=== PATIENT | female | born 1950 | race Caucasian/White ===

== ENCOUNTER → 2017-01-06 | Outpatient (CLI) | payer BC, OTHER ==
[~2017-01-06] MED LIST: CMD5 PO; DIPH1TAB87 PO; FRCT/ PO; KETO10TA PO; METH4PAK PO; MONT1TAB3 PO; PARO30TA PO; PRLSR20 PO; SIMV40TA2 PO; VNTHFA/IN INH
[2017-01-06 09:42] LABS: ALT/SGPT 17 U/L (12-78); AST/SGOT 16 U/L (15-37); BLOOD UREA NITROGEN 20 mg/dl (7-18); CALCIUM 8.5 mg/dl (8.5-10.1); CARBON DIOXIDE 31 mmol/L (21-32); CHLORIDE 108 mmol/L (98-107); CHOLESTEROL 194 mg/dl (0-200); CREATININE 0.91 mg/dl (0.60-1.20); GLUCOSE 92 mg/dl (70-99); POTASSIUM 4.3 mmol/L (3.5-5.1); SODIUM 145 mmol/L (136-145)
[2017-01-06 09:45] LABS: ALB/GLOB RATIO 0.7 (0.9-2); ALKALINE PHOSPHATASE 71 U/L (45-117); CHOLESTEROL/HDL RATIO 4.3; HDL CHOLESTEROL 45 mg/dl; TRIGLYCERIDES 226 mg/dl (0-150); VERY LOW DENSITY LIPOPROT CALC 45 mg/dl
== END | disposition home or self-care (01) ==
LOC: C.LAB 08:56
PROVIDERS: ATTEND Physician Assistant Medical
DX: J45.909 Unspecified asthma, uncomplicated (principal); F32.9 Major depressive disorder, single episode, unspecified; G89.29 Other chronic pain; E55.9 Vitamin D deficiency, unspecified; Z86.718 Personal history of other venous thrombosis and embolism

== ENCOUNTER 2017-01-13 05:22 | Inpatient (IN) | payer OTHER, BC ==
[2017-01-06 08:09] VITALS: BMI 40.0
--- NOTE | 2017-01-06 08:41 | PAT Medication Instructions ---
Service Date Jan 06, 2017. Current Home Medication List Albuterol Hfa (Ventolin Hfa), 2-4 PUFFS INH Q6H PRN for Shortness of Breath Montelukast Sodium (Singulair), 10 MG PO QAM Omeprazole (Prilosec), 20 MG PO QAM Paroxetine Hcl (Paxil), 30 MG PO QAM Simvastatin (Zocor), 40 MG PO QAM Warfarin Sod (Coumadin), 8 MG PO UD Medication Instructions For Your Scheduled Surgery - Check with surgeon and head irrigator for instruction: Warfarin Sod (Coumadin), 8 MG PO UD - Hold the following medications the morning of surgery: Montelukast Sodium (Singulair), 10 MG PO QAM - Take the following medications the morning of surgery with a sip of water: Albuterol Hfa (Ventolin Hfa), 2-4 PUFFS INH Q6H PRN for Shortness of Breath (if needed) Omeprazole (Prilosec), 20 MG PO QAM Paroxetine Hcl (Paxil), 30 MG PO QAM Simvastatin (Zocor), 40 MG PO QAM If you have any questions please call us at [phone] or [phone] or [phone]
--- NOTE | 2017-01-06 09:36 | DIAGNOSTIC IMAGING REPORT ---
CHEST PREADMISSION(PA/LAT) CLINICAL HISTORY: Preoperative chest COMPARISON STUDY: No previous studies for comparison. FINDINGS: The heart is enlarged. There is no focal pulmonary consolidation. There is no failure. There are no pleural effusions. Degenerative changes are present within the dorsal spine. As a mild scoliosis.[ IMPRESSION: No active disease in the chest. Electronically signed by: Tommy Snyder M.D. 01/06/2017 9:35 AM Dictated Date/Time: 01/06/2017 9:34 AM
[2017-01-06 09:44] LABS: BASO % 0.7 %; BASO ABS # 0.05 K/uL (0-0.2); COMPLETE YES; EOS % 1.8 %; HEMATOCRIT 38.3 % (37-47); IG% 0.1 %; LYMPH % 35.2 %; LYMPH ABS # 2.67 K/uL (1.2-3.4); MEAN CELL VOLUME 81.3 fL (80-100); MEAN CORPUSCULAR HEMOGLOBIN 25.5 pg (25-34); MEAN CORPUSCULAR HGB CONC 31.3 g/dl (32-36); MEAN PLATELET VOLUME 10.2 fL (7.4-10.4); MONO % 6.6 %; NEUT % 55.6 %; PLATELET COUNT 259 K/uL (130-400); RED BLOOD COUNT 4.71 M/uL (4.2-5.4); WHITE BLOOD COUNT 7.58 K/uL (4.8-10.8)
[2017-01-06 09:46] LABS: INR 2.3 (0.9-1.1); PARTIAL THROMBOPLASTIN RATIO 1.5
--- NOTE | 2017-01-12 20:57 | HISTORY & PHYSICAL EXAMINATION ---
DATE OF ADMISSION: 01/13/2017 CHIEF COMPLAINT: Back and lower extremity difficulty, paresthesias, numbness, tingling and pain. HISTORY OF PRESENT ILLNESS: Radhika is a delightful young lady. She has had ongoing back and lower extremity difficulty for several years. She has had surgery in the past, helped her to a degree. She had increasing symptomatology. She saw me for a second opinion. She wants my expertise for surgical intervention and we have scheduled her for surgery, she has cauda equina compression at L2-L3 and she has nerve root compression at L5-S1. PAST MEDICAL HISTORY: Includes asthma, blood clot in the past in 2011, angina, acid reflux, osteoarthritis. Notes no carcinoma history. No difficulty with anesthesia. No liver ____ kidney issues. PAST SURGICAL HISTORY: Lumbar spine surgery in 2013, hysterectomy, tonsil and adenoids as well, hernia repair, appendectomy. ALLERGIES: PENICILLIN, AMPICILLIN, CEFTIN, AND SULFA. MEDICATIONS: Prilosec, Paxil, Zocor, vitamin D and warfarin. SOCIAL HISTORY: Nonsmoker, non-ETOH user. REVIEW OF SYSTEMS: She denies any blurred vision, double vision, tinnitus, vertigo. Denies any current chest pain, palpitations. Denies asthma, wheezing, shortness of breath. Her major complaint is her back and lower extremity difficulty, numbness and tingling, loss of range of motion. OBJECTIVE: GENERAL: She is 5 feet 10 inches, 200 pounds. She is alert, oriented. Mentation normal. She does not appear depressed. VITAL SIGNS: 130/80 blood pressure, 80 pulse, afebrile. CARDIAC: Normal S1, S2, no S3. Good pulses. No ectopy. RESPIRATORY: Equal breath sounds bilaterally. No wheezing, no shortness of breath. ABDOMEN: Soft, nontender, bowel sounds present. MUSCULOSKELETAL: Demonstrates pain with straight leg raising bilaterally. She does use a walker for support. She has pain with palpation of lumbar spine. She has pain and decreased range of motion. IMAGING DATA: Images reviewed demonstrating a good interbody fusion at L5-S1 migration posteriorly on the left ____ neural foramen also appears to be degenerative issue at L2-L3 with a herniated disk as well. ASSESSMENT: Nerve root irritation, degenerative disk disease, L2-L3 lumbar spine; nerve root compression, L5-S1 lumbar spine. PLAN: Includes surgery would be revision of the L3-S1, removal of old rods and screws, replaced with rods and screws and fusion L2-L3, modification of the interbody fusion L5-S1 and decompression L3-S1.
[2017-01-13] VITALS (8 sets, daily range): BP systolic 114–140; BP diastolic 71–84; PULSE 73–90; TEMP 35.8–37; O2SAT 87–100; Ht 152.4 cm; Wt 93.4 kg
[~2017-01-13] VITALS: Ht 152.4 cm; Wt 93.4 kg
[~2017-01-13 05:22] MED LIST changes: -DIPH1TAB87 PO; -FRCT/ PO; -KETO10TA PO; -METH4PAK PO
[2017-01-13] MEDS ORDERED: DIPH1TAB PO (05:45)
[2017-01-13] MEDS ORDERED: LACTATED RINGER'S 1000ML 1,000 ML IV SCH (06:00)
[2017-01-13] MEDS ORDERED: CLINDAMYCIN 600 MG/54 ML D5W IV SCH (06:00)
[2017-01-13] MEDS ORDERED: SODIUM CHLORIDE 0.9% 1000ML 1,000 ML IV SCH ×2 (06:00→11:20)
[2017-01-13 06:23] LABS: PARTIAL THROMBOPLASTIN RATIO 1.1; PROTHROMBIN TIME (PATIENT) 10.8 SECONDS (9.0-12.0)
[2017-01-13] MEDS ORDERED: HYDROmorphone INJ 2 MG/ML SYR/VIAL ONE (06:39)
[2017-01-13] MEDS ORDERED: MIDAZOLAM HCL 1 MG/ML 2ML VIAL ONE (06:39)
[2017-01-13] MEDS ORDERED: FENTANYL CITRATE INJ 50 MCG/1 ML 2 ML VIAL ONE ×2 (06:39→10:08)
[2017-01-13] MEDS ORDERED: PHENYLEPHRINE 100MCG/ML 5ML SYR IV PRN (07:00)
[2017-01-13] MEDS ORDERED: PROMETHAZINE HCL INJ 12.5 MG in SODIUM CHLORIDE 0.9% 50ML 50 ML IV PRN ×2 (07:00→11:30)
[2017-01-13] MEDS ORDERED: ATROPINE SULFATE 0.1 MG/ML 5ML SYR IV PRN (07:00)
[2017-01-13] MEDS ORDERED: FENTANYL CITRATE INJ 50 MCG/1 ML 2 ML VIAL IV PRN (07:00)
[2017-01-13] MEDS ORDERED: LABETALOL HCL IV 5 MG/ML 20ML IV PRN (07:00)
[2017-01-13] MEDS ORDERED: ONDANSETRON INJ 2 MG/ML 2 ML VIAL IV PRN (07:00)
[2017-01-13] MEDS ORDERED: HYDROmorphone INJ 1 MG/ML SYR IV PRN (07:00)
[2017-01-13] MEDS ORDERED: EpHEDrine SULFATE INJ 50 MG/ML AMP IV PRN (07:00)
[2017-01-13] MEDS ORDERED: GELATIN SPONGE SZ 100 ONE (07:07)
[2017-01-13] MEDS ORDERED: THROMBIN FOR SOLN 20000 UNIT KIT ONE (07:07)
[2017-01-13] MEDS ORDERED: BACITRACIN 50000 UNIT VIAL ONE ×2 (07:08→09:43)
[2017-01-13] MEDS ORDERED: BUPIVACAINE/EPINEPHRINE 0.5% MPF 1:200,000 30 ML VIAL ONE (07:08)
--- NOTE | 2017-01-13 07:14 | History & Physical Bridge Note ---
H&P Re-Evaluation Bridge Note: I have examined the patient, reviewed the History & Physical and in the interval since the performance of the History & Physical I have noted the following changes of clinical significance: No changes noted
[2017-01-13] MEDS ORDERED: ROCURONIUM BROMIDE 10 MG/ML 5 ML VIAL IV ONE (09:29)
[2017-01-13] MEDS ORDERED: GLYCOPYRROLATE INJ 0.2 MG/ML VIAL ONE (09:29)
[2017-01-13] MEDS ORDERED: ONDANSETRON INJ 2 MG/ML 2 ML VIAL ONE (09:29)
[2017-01-13] MEDS ORDERED: PROPOFOL IV EMULSION 10 MG/ML 20 ML VIAL IV ONE (09:29)
[2017-01-13] MEDS ORDERED: NEOSTIGMINE METHYLSULFATE 5 MG/5 ML SYR ONE (09:29)
[2017-01-13] MEDS: POLYMYXIN B SULFATE 100,000 UNITS in NSS 100ML IR SCH ×2 (10:30→11:09)
[2017-01-13] MEDS ORDERED: DURASEAL DURAL SEALANT 5ML TOP ONE (10:47)
--- NOTE | 2017-01-13 10:50 | DIAGNOSTIC IMAGING REPORT ---
INTRAOPERATIVE LUMBAR SPINE LATERAL VIEWS ONLY (2 VIEWS) CLINICAL HISTORY: L2-L3 FUSION COMPARISON STUDY: Conventional radiographic study dated 12/27/2016 FINDINGS: 8 seconds of fluoroscopic time was utilized. 2 intraoperative fluoroscopic spot images are provided for interpretation. There are postsurgical changes of discectomies and interbody fusions at the L3-4, L4-5, and L5-S1 levels, similar to the preoperative study. The L4 pedicle screws have been removed. L2 pedicle screws have been placed. IMPRESSION: Intraoperative findings as described above. Electronically signed by: Tommy Snyder M.D. 01/13/2017 10:48 AM Dictated Date/Time: 01/13/2017 10:46 AM
--- NOTE | 2017-01-13 11:21 | [facility] Post Operative Brief Note ---
Immediate Operative Summary Operative Date Jan 13, 2017. Pre-Operative Diagnosis Nerve root irritation, degenerative disk disease, L2-L3 lumbar spine; nerve root compression, L5-S1 lumbar spine Post-Operative Diagnosis Nerve root irritation, degenerative disk disease, L2-L3 lumbar spine; nerve root compression, L5-S1 lumbar spine Procedure(s) Performed L2-S1 Decompression, Removal Hardware L3-S1, Fusion L2-L3, Revision of construct L5-S1, Repair of dural tear Surgeon Dr. Mcdonald Water Project Manager Surgeon(s) JONNA Christianson Estimated Blood Loss 400ml Findings stenosis and instabil;ity Specimens A) removed hardware Complication(s) None Disposition Recovery Room / PACU
[2017-01-13] MEDS ORDERED: LORAZEPAM 1 MG TAB PO PRN (11:30)
[2017-01-13] MEDS ORDERED: MAGNESIUM HYDROXIDE SUSP 30 ML UDC PO PRN (11:30)
[2017-01-13] MEDS ORDERED: NALOXONE HCL 0.4 MG/1 ML VIAL/CARP IV PRN (11:30)
[2017-01-13] MEDS ORDERED: LORAZEPAM INJ 1 MG in SYRINGE 0 ML IV PRN (11:30)
[2017-01-13] MEDS ORDERED: ACETAMINOPHEN 325 MG TAB PO PRN (11:30)
[2017-01-13] MEDS ORDERED: METOCLOPRAMIDE HCL INJ 5 MG/ML 2 ML VIAL IV PRN (11:30)
[2017-01-13] MEDS ORDERED: [UNRECOGNIZED DRUG - REMARK] PO PRN (11:30)
[2017-01-13] MEDS ORDERED: HYDROmorphone HCL 0.5MG/ML 50 ML CASSETTE ONE (11:45)
--- NOTE | 2017-01-13 11:58 | OPERATIVE REPORT ---
DATE OF OPERATION: 01/13/2017 PREOPERATIVE DIAGNOSES: 1. Spinal stenosis, lumbar spine. 2. Painful implants, lumbar spine. 3. Instability and stenosis L2-L3, lumbar spine. POSTOPERATIVE DIAGNOSIS: Same. PROCEDURE: Included: 1. Decompression L2-S1 bilaterally, L2, L3, L4, L5 and S1 nerve roots bilaterally. 2. Removal of old implants, L3, L4, L5 and S1. 3. Instrumentation and fusion L2-L3, lumbar spine. 4. Removal and revision of old implant at L5-S1, which is an old cage implant from the [id number]. SURGEON: Dr. Mcdonald. SEISMOGRAPH CHIEF: Krishna Callahan PA-C. COMPLICATIONS: No apparent complications. BLOOD LOSS: 400 mL. COUNTS: Sponge and needle count correct at the close. No complications. DESCRIPTION OF PROCEDURE: The patient was taken to the operating room suite, a general intubated anesthetic provided to the patient, a Santana catheter administered and antibiotics administered. She was placed prone, scrubbed, prepped and draped in a sterile fashion. We used most of her old incisions and made a new incision, basically from L2 down to S1 dissecting the soft tissue in the same plane out over the transverse processes and out over the old implants. We meticulously removed the old spinal implants, first the crosslinks then the pedicle screws and the rods themselves. We then went to focus at the L2-L3 interval lumbar spine, decompressed that in their entirety from L2 down to L3. We also decompressed the neural elements L4, L5, S1 bilaterally. I was pleased with the amount of freedom. We then instrumented the spine secondary to instability factor at L2-L3, safely getting pedicle screws in to L3 and L2 of the lumbar elements, stabilized and decompressed an unstable segment. We then went down to the L5-S1 region. We localized the intervertebral implant. We retracted the dura in a medial direction, we could see both the S1 and L5 nerve roots. Appeared to me that the PEEK implant was eroding into the nerve root particularly S1 into the dura itself. We carefully removed this off the implant. We held a hand-held retractor. I was able to retract off the proximal portion of the implant estimating about 4-5 mm. This gave freedom to the S1 and L5 nerve roots bilaterally. With a probe and visualization, they were then free of obstruction. We irrigated thoroughly. I did a prophylactically closed the dura down at L5-S1, it was right up against the nerve root. We then used a material called DuraSeal over the exposed dura to prevent any future leakage of spinal fluid. We then bone grafted out over the transverse processes of the L2-L3, closed fascia to fascia with #1 Vicryl suture water tight fashion, 2-0 on the subcuticular layer, 3-0 nylon and a staple gun used on the skin surface. Sterile dressings applied. The patient returned supine, extubated to PACU stable. No apparent complications. I attest to the content of the Intraoperative Record and any orders documented therein. Any exception s are noted below.
[2017-01-13 12:00] LABS: HEMATOCRIT 33.9 % (37-47)
--- NOTE | 2017-01-13 13:05 | Anesthesiology Progress Note ---
Anesthesia Post Op Note Date & Time Jan 13, 2017 at 13:05 Vital Signs Pain Intensity: 0 Vital Signs Past 12 Hours Date Time Temp Pulse Resp B/P (MAP) Pulse Ox O2 Delivery O2 Flow Rate FiO2 01/13/17 13:00 36.0 86 12 155/90 95 Nasal Cannula 4 01/13/17 12:33 81 20 01/13/17 12:33 81 20 97 01/13/17 12:31 132/91 01/13/17 12:28 96 20 01/13/17 12:28 96 20 96 01/13/17 12:26 126/104 01/13/17 12:23 83 10 118/75 98 01/13/17 12:23 83 10 01/13/17 12:21 106/72 01/13/17 12:18 80 12 01/13/17 12:18 80 12 96 01/13/17 12:16 108/60 01/13/17 12:13 80 12 97 01/13/17 12:13 80 12 01/13/17 12:11 118/65 01/13/17 12:08 87 16 95 01/13/17 12:08 88 16 01/13/17 12:06 110/62 01/13/17 12:03 84 12 01/13/17 12:03 84 12 96 01/13/17 12:01 116/63 01/13/17 11:58 89 15 01/13/17 11:58 89 15 122/66 96 01/13/17 11:56 122/66 01/13/17 11:53 91 13 97 01/13/17 11:53 91 13 01/13/17 11:51 139/71 01/13/17 11:48 97 18 99 01/13/17 11:48 97 18 01/13/17 11:46 157/77 01/13/17 11:43 107 16 99 01/13/17 11:43 107 16 01/13/17 11:41 153/91 01/13/17 11:38 103 10 99 01/13/17 11:38 103 10 01/13/17 11:36 161/80 01/13/17 11:35 108 12 161/80 99 Oxymask 10 01/13/17 11:34 169/93 01/13/17 11:33 106 12 01/13/17 11:33 36.0 106 12 124/109 99 Oxymask 10 01/13/17 11:33 106 12 124/109 93 01/13/17 05:47 36.5 73 20 129/72 97 Room Air Notes Mental Status: alert / awake / arousable, participated in evaluation Pt Amnestic to Procedure: Yes Nausea / Vomiting: adequately controlled Pain: adequately controlled Airway Patency, RR, SpO2: stable & adequate BP & HR: stable & adequate Hydration State: stable & adequate Anesthetic Complications: no major complications apparent
[2017-01-13] MEDS: HYDROmorphone HCL 0.5MG/ML 50 ML CASSETTE IV PRN ×3 (13:30→23:04)
--- NOTE | 2017-01-13 14:05 | Medical Consult ---
Consultation Date of Consultation: Jan 13, 2017. Attending Physician: Ruddy Mcdonald DO Reason for Consultation: Medical Management History of Present Illness This is a 66 yo F with PMHx of asthma, gerd, morbid obesity, HAYDEE on cpap, angina , osteoarthritis, hx of PE in 2013 and DVT approximately 1 year ago on chronic anticoagulation, who underwent spinal surgery by Dr. Mcdonald on 01/13/17 including decompression L2-S1 bilaterally, L2, L3, L4, L5 and S1 nerve roots bilaterally, removal of old implants, L3, L4, L5 and S1, Instrumentation and fusion L2-L3, lumbar spine, and removal and revision of old implant at L5-S1. During surgery Hardware appeared to be eroding into the dura itself, and therefor removal resulted in a dura tear. Duraseal was placed over the area to prevent further CSF leak. Her family including and two daughters are present during my evaluation. She is asleep but easily awakened. She admits to having a bad frontal headache. Nursing reports she did not complain of this headache in the PACU but has since being moved up to the floor. She is having back pain, but no numbness or tingling into her lower extremities. Family notes she was complaining of nausea earlier but no vomiting. Pt received zofran and phenergan in the PACU, likely adding to her lethargic nature. She has a cpap machine brought from home. Pts last BM was yesterday morning. Family reports she uses a walker outside of the home, but inside does not use anything. They report [facility] would likely be her choice for rehab after this hospitalization. Past Medical/Surgical History Cauda equina compression at L2-L3 and she has nerve root compression at L5-S1. Asthma Hx of DVT in 2011 Angina GERD Osteoarthritis Surgical Hx: Lumbar spine surgery in 2013 Hysterectomy Tonsillectomy and adenoidectomy Hernia repair Appendectomy Social History Smoking Status: Never Smoker Smokeless Tobacco Use: No Alcohol Use: none Drug Use: none Marital Status: Housing Status: lives with family Allergies Coded Allergies: Enoxaparin (Verified Allergy, Intermediate, HIVES, 01/13/17) Cephalosporins (Verified Allergy, Mild, RASH HIVES, 01/13/17) Penicillins (Verified Allergy, Mild, RASH HIVES, 01/13/17) Vancomycin (Verified Allergy, Mild, RASH HIVES, RED STRAKING, EYES SWOLLEN , 01/13/17) Hydrochlorothiazide (Unverified Allergy, Unknown, UNKNOWN REACTION, ) PER PCP RECORDS Macrolides and Ketolides (Verified Allergy, Unknown, RASH/HIVES TO MACROLIDES, 01/13/17) Sulfa Antibiotics (Verified Allergy, Unknown, RASH/HIVES TO SULFA DRUGS, 01/13/17) Iodine (Verified Adverse Reaction, Mild, IODINE CONTRAST -- N/V, 01/13/17) Meperidine (Verified Adverse Reaction, Mild, N/V, 01/13/17) Sertraline (Unverified Adverse Reaction, Unknown, UNKNOWN REACTION, ) PER PCP RECORDS Current Inpatient Medications Current Inpatient Medications Medications (Trade) Dose Ordered Sig/Omar Route Start Time Stop Time Status Last Admin Dose Admin Clindamycin Phosphate 54 ml @ 100 mls/hr PREOP IV 01/13/17 06:00 01/13/17 18:00 01/13/17 07:31 100 MLS/HR Sodium Chloride 1,000 ml @ 15 mls/hr Q24H IV 01/13/17 06:00 01/14/17 05:59 Lactated Ringer's 1,000 ml @ 15 mls/hr Q24H IV 01/13/17 06:00 01/14/17 05:59 01/13/17 06:08 15 MLS/HR Polymyxin B Sulfate 958473 units/Sodium Chloride 102 ml @ 0 mls/hr TODAY@1030 IR 01/13/17 10:30 01/13/17 16:00 01/13/17 11:09 40 MLS/HR Diphenhydramine HCl (Benadryl Cap) 25 mg Q6H PRN PO 01/13/17 11:30 02/12/17 11:29 Magnesium Hydroxide (Milk Of Magnesia Susp) 30 ml DAILY PRN PO 01/13/17 11:30 02/12/17 11:29 Bisacodyl (Dulcolax Supp) 10 mg DAILY PRN AK 01/14/17 06:00 02/13/17 05:59 Bisacodyl (Dulcolax Tab) 5 mg DAILY PRN PO 01/14/17 06:00 02/13/17 05:59 Polyethylene (Miralax Powder Packet) 17 gm DAILY PO 01/14/17 09:00 11/16/17 08:59 UNV Lorazepam 1 mg/ Syringe 0.5 ml @ 1 mls/min Q6H PRN IV 01/13/17 11:30 02/12/17 11:29 UNV Lorazepam (Ativan Tab) 1 mg Q6H PRN PO 01/13/17 11:30 02/12/17 11:29 Metoclopramide HCl (Reglan Inj) 10 mg Q6H PRN IV 01/13/17 11:30 02/12/17 11:29 Ondansetron HCl (Zofran Inj) 4 mg Q6H PRN IV 01/13/17 11:30 02/12/17 11:29 Promethazine HCl 12.5 mg/Sodium Chloride 50.5 ml @ 202 mls/hr Q6H PRN IV 01/13/17 11:30 02/12/17 11:29 01/13/17 12:55 202 MLS/HR Hydromorphone HCl (Dilaudid Inj) 1.5 mg Q3H PRN IV 01/14/17 08:00 01/28/17 07:59 Oxycodone/ Acetaminophen (Percocet 5-325mg Tab) 2 tab Q4H PRN PO 01/14/17 08:00 01/28/17 07:59 Hydromorphone HCl (Dilaudid Inj) 1 mg Q3H PRN IV 01/14/17 08:00 01/28/17 07:59 Oxycodone/ Acetaminophen (Percocet 5-325mg Tab) 1 tab Q4H PRN PO 01/14/17 08:00 01/28/17 07:59 Miscellaneous Information (Discontinue BUSINESS MANAGER) 1 ea ONE ONCE N/A 01/14/17 08:00 01/14/17 08:01 Acetaminophen (Tylenol Tab) 650 mg Q6H PRN PO 01/13/17 11:30 02/12/17 11:29 Clindamycin Phosphate 600 mg/ Dextrose 54 ml @ 100 mls/hr Q8H IV 01/13/17 11:30 01/13/17 20:03 UNV Dexamethasone Sodium Phosphate 10 mg/Syringe 2.5 ml @ 1 mls/min Q8H IV 01/13/17 11:30 01/14/17 19:33 UNV Sodium Chloride 1,000 ml @ 80 mls/hr [id number] IV 01/13/17 11:20 02/12/17 11:19 Montelukast Sodium (Singulair Tab) 10 mg QAM PO 01/14/17 09:00 02/13/17 08:59 UNV Simvastatin (Zocor Tab) 40 mg QAM PO 01/14/17 09:00 02/13/17 08:59 UNV Warfarin Sodium (Coumadin Tab) 8 mg UD PO 01/13/17 11:30 02/12/17 11:29 UNV Non-Formulary Medication (Diphenhydramine Hcl (Benadryl Allergy)) 25 mg DIRECTED PRN PO 01/13/17 11:30 02/12/17 11:29 UNV Non-Formulary Medication (Omeprazole (Prilosec)) 20 mg QAM PO 01/14/17 09:00 02/13/17 08:59 UNV Non-Formulary Medication (Paroxetine Hcl (Paxil)) 30 mg QAM PO 01/14/17 09:00 02/13/17 08:59 UNV Naloxone HCl (Narcan Inj) 0.1 mg Q5M PRN IV 01/13/17 11:30 01/14/17 08:00 Hydromorphone HCl (Dilaudid Back Maker) 25 mg PRN PRN IV 01/13/17 11:30 01/14/17 08:00 01/13/17 13:30 25 MG Sodium Chloride 1,000 ml @ 15 mls/hr Q24H IV 01/13/17 11:20 01/14/17 08:00 Review of Systems Constitutional: + problem reported (severe frontal headache), No fever, No chills, No sweats Eyes: No problem reported ENT: + problem reported (dry mouth), No trouble swallowing Respiratory: No cough, No sputum, No shortness of breath Cardiovascular: No chest pain, No edema, No palpitations Abdomen: No pain, No nausea, No vomiting, No diarrhea, No constipation Musculoskeletal: No joint pain, No swelling Genitourinary - Female: No dysuria Neurologic: No weakness, No numbness/tingling Integumentary: No rash, No itch Physical Exam Date Time Temp Pulse Resp B/P (MAP) Pulse Ox O2 Delivery O2 Flow Rate FiO2 01/13/17 13:16 144/84 01/13/17 13:15 88 13 144/84 96 Nasal Cannula 4 01/13/17 13:14 88 13 96 01/13/17 13:14 88 13 01/13/17 13:11 141/91 01/13/17 13:09 87 13 01/13/17 13:09 87 13 96 01/13/17 13:06 134/84 01/13/17 13:04 85 11 95 01/13/17 13:04 85 11 01/13/17 13:01 155/90 01/13/17 13:00 36.0 86 12 155/90 95 Nasal Cannula 4 01/13/17 12:59 91 12 01/13/17 12:59 90 12 96 01/13/17 12:56 162/104 01/13/17 12:54 95 19 97 01/13/17 12:54 96 19 01/13/17 12:51 103/53 01/13/17 12:49 79 12 01/13/17 12:49 79 12 97 01/13/17 12:46 115/93 01/13/17 12:44 79 12 98 01/13/17 12:44 79 12 01/13/17 12:41 117/79 01/13/17 12:39 80 12 01/13/17 12:39 80 12 97 01/13/17 12:36 112/64 01/13/17 12:34 82 17 01/13/17 12:34 82 17 97 01/13/17 12:33 81 20 01/13/17 12:33 81 20 97 01/13/17 12:31 132/91 01/13/17 12:28 96 20 01/13/17 12:28 96 20 96 01/13/17 12:26 126/104 01/13/17 12:23 83 10 118/75 98 01/13/17 12:23 83 10 01/13/17 12:21 106/72 01/13/17 12:18 80 12 01/13/17 12:18 80 12 96 01/13/17 12:16 108/60 01/13/17 12:13 80 12 97 01/13/17 12:13 80 12 01/13/17 12:11 118/65 01/13/17 12:08 87 16 95 01/13/17 12:08 88 16 01/13/17 12:06 110/62 01/13/17 12:03 84 12 01/13/17 12:03 84 12 96 01/13/17 12:01 116/63 01/13/17 11:58 89 15 01/13/17 11:58 89 15 122/66 96 01/13/17 11:56 122/66 01/13/17 11:53 91 13 97 01/13/17 11:53 91 13 01/13/17 11:51 139/71 01/13/17 11:48 97 18 99 01/13/17 11:48 97 18 01/13/17 11:46 157/77 01/13/17 11:43 107 16 99 01/13/17 11:43 107 16 01/13/17 11:41 153/91 01/13/17 11:38 103 10 99 01/13/17 11:38 103 10 01/13/17 11:36 161/80 01/13/17 11:35 108 12 161/80 99 Oxymask 10 01/13/17 11:34 169/93 01/13/17 11:33 106 12 01/13/17 11:33 36.0 106 12 124/109 99 Oxymask 10 01/13/17 11:33 106 12 124/109 93 01/13/17 05:47 36.5 73 20 129/72 97 Room Air General Appearance: WD/WN, no apparent distress, + obese, + pertinent finding ( lethargic) Head: normocephalic, atraumatic Eyes: PERRL, EOMI ENT: hearing grossly normal, + pertinent finding (MM dry) Neck: supple, no JVD Respiratory/Chest: chest non-tender, lungs clear, no respiratory distress, no accessory muscle use Cardiovascular: regular rate, rhythm, no murmur, normal peripheral pulses Abdomen/GI: normal bowel sounds, non tender, soft Back: normal inspection, + pertinent finding (bandage C/d/i, hemovac drain in place mid lower back.) Extremities/Musculoskelatal: normal inspection, no calf tenderness, no pedal edema Neurologic/Psych: + pertinent finding (lethargic, orientation slighlty altered but knows shes in a hospital.) Skin: warm/dry, + pertinent finding (appears pale) Laboratory Results Last 24 Hours Test 01/13/17 06:02 01/13/17 11:50 Prothrombin Time 10.8 SECONDS Prothromb Time International Ratio 1.0 Activated Partial Thromboplast Time 27.6 SECONDS Partial Thromboplastin Ratio 1.1 Hemoglobin 10.7 g/dL Hematocrit 33.9 % Assessment & Plan This is a 66 yo F with PMHx of asthma, gerd, morbid obesity, angina, osteoarthritis, who underwent spinal surgery by Dr. Mcdonald on 01/13/17 including decompression L2-S1 bilaterally, L2, L3, L4, L5 and S1 nerve roots bilaterally, removal of old implants, L3, L4, L5 and S1, Instrumentation and fusion L2-L3, lumbar spine, and removal and revision of old implant at L5-S1. S/p spinal surgery with dura tear - Pt should remain flat until decided by orthopedics due to dura tear, frontal headache likely secondary to the dura tear and subsequent CSF leak- monitor closely for mental status changes. - Pain management, bowel regimen, PT/OT per primary team - Dilaudid sow manager on board but pt not awake to press the button. Would consider a basal rate be started at this time at low dose if ok with primary team. - Anticoagulation with coumadin was held prior to spinal surgery- will hold for now in case of need for subsequent surgical procedure with dura leak. - Hgb at 10.7 and was in the 12s prior to this hospitalization - trend with am labs - hemovac drain in place with ~200 mL out so far. - NSS @80 ml/hr - salgado cath draining clear yellow urine GERD - Continue ppi HLD - Continue zocor Morbid obesity - Diet and exercise should be discussed prior to discharge. - PT/OT HAYDEE - Pt has cpap machine from home Hx of DVT and PE - Coumadin 8 mg daily per family - Hold for now DVT ppx: teds, scds CODE STATUS: FULL CODE Disposition: From home, discharge per primary team PA Physician Supervision Note: I interviewed and examined the patient. Discussed with Rehana MATIAS and agree with findings and plan as documented in the note. Any exceptions or clarifications are listed here: None PT s/p revision of previous spinal surgery, with removal and replacement of hardware, concern for dura leak. Pt has headache now that she has returned to floor. Ortho spine has decided to resume her typical coumadin that she takes for history of VTE, at 8 mg a night but will confer on timing to re start. vitals are stable, exam with normal mental status, regular heart and lungs will have PA touch base with DR Mcdonald about worsening of headache, and timing of starting coumadin, will follow daily Documented By: Piotr Ken
[2017-01-13] MEDS: SODIUM CHLORIDE 0.9% 1000ML 1,000 ML IV SCH ×2 (14:11→23:18)
[2017-01-13] MEDS ORDERED: INFLUENZA VACCINE HIGH DOSE 65+ 0.5 ML SYR IM. ONE (15:15)
[2017-01-13] MEDS ORDERED: INFLUENZA ADMINISTRATION CHARGE ONE (15:15)
[2017-01-13] MEDS ORDERED: WARFARIN SOD 4 MG TAB PO SCH (16:00)
[2017-01-13] MEDS: ACETAMINOPHEN IV 1,000 MG in EMPTY BAG 0 ML IV SCH ×2 (16:33→23:18)
[2017-01-13] MEDS: CLINDAMYCIN IV 600 MG in DEXTROSE 5% 50ML 50 ML IV SCH ×2 (17:33→23:18)
[2017-01-13] MEDS: DEXAMETHASONE INJ 10 MG in SYRINGE 0 ML IV SCH (18:24)
[2017-01-13] MEDS: MONTELUKAST SOD 10 MG TAB PO SCH (21:20)
[2017-01-14] MEDS: DEXAMETHASONE INJ 10 MG in SYRINGE 0 ML IV SCH ×3 (01:44→18:23)
[2017-01-14 03:03] VITALS: BP 93/59; PULSE 86; TEMP 36.5; O2SAT 97
[2017-01-14] MEDS ORDERED: BISACODYL 5 MG TABEC PO PRN (06:00)
[2017-01-14] MEDS ORDERED: BISACODYL 10 MG SUPP PR PRN (06:00)
[2017-01-14 06:20] VITALS: BP 101/67
[2017-01-14] MEDS: HYDROmorphone HCL 0.5MG/ML 50 ML CASSETTE IV PRN (07:06)
[2017-01-14 07:23] VITALS: BP 95/61; PULSE 86; TEMP 36.4; O2SAT 98
[2017-01-14] MEDS: ACETAMINOPHEN IV 1,000 MG in EMPTY BAG 0 ML IV SCH ×3 (07:37→23:31)
[2017-01-14] MEDS ORDERED: HYDROmorphone INJ 1 MG/ML SYR IV PRN (08:00)
[2017-01-14] MEDS ORDERED: DC PCA ONE (08:00)
[2017-01-14] MEDS ORDERED: HYDROmorphone INJ 2 MG/ML SYR/VIAL IV PRN (08:00)
[2017-01-14] MEDS ORDERED: OXYCODONE/ACETAMINOPHEN 5-325 TAB PO PRN ×2 (08:00)
[2017-01-14] MEDS: ONDANSETRON INJ 2 MG/ML 2 ML VIAL IV PRN (08:12)
--- NOTE | 2017-01-14 08:29 | ORTHOPEDICS PROGRESS NOTE ---
DATE: 01/14/2017 DATE: 01/14/2017 SUBJECTIVE: Alert, oriented, minimal complaints of pain. No spinal headache. OBJECTIVE: Vital signs stable, 33.9 hematocrit. IMPRESSION: She is now approximately 20 hours after major spinal reconstructive lumbar surgery. Doing well in the short run. DISPOSITION: Includes instructions, precautions, education. We will slowly elevate the head of her bed. Will keep her at bed rest, gentle exercises as well. Possibly this afternoon progress her status. Tentative discharge home will be .
[2017-01-14] MEDS: POLYETHYLENE (MIRALAX) 17 GM PACK PO SCH (09:00)
--- NOTE | 2017-01-14 09:56 | Anesthesiology Progress Note ---
Anesthesia Post Op Note Date & Time Jan 14, 2017 at 09:56 Vital Signs Vital Signs Past 12 Hours Date Time Temp Pulse Resp B/P (MAP) Pulse Ox O2 Delivery O2 Flow Rate FiO2 01/14/17 07:53 Nasal Cannula 4.0 01/14/17 07:23 36.4 86 16 95/61 (72) 98 Room Air 01/14/17 06:20 101/67 (78) 01/14/17 03:03 36.5 86 16 93/59 (70) 97 Nasal Cannula 4.0 01/13/17 23:15 Nasal Cannula 4.0 01/13/17 22:45 37.0 85 16 114/71 (85) 99 Nasal Cannula 4.0 Notes Mental Status: alert / awake / arousable, participated in evaluation Pt Amnestic to Procedure: Yes Nausea / Vomiting: adequately controlled Pain: adequately controlled Airway Patency, RR, SpO2: stable & adequate BP & HR: stable & adequate Hydration State: stable & adequate Anesthetic Complications: no major complications apparent
[2017-01-14 10:32] VITALS: BP 105/68; PULSE 76; TEMP 36.4; O2SAT 100
[2017-01-14] MEDS: PAROXETINE 30 MG TAB PO SCH (10:45)
[2017-01-14] MEDS: SIMVASTATIN 40 MG TAB PO SCH (10:45)
[2017-01-14] MEDS: PANTOprazole SOD 40 MG TAB PO SCH (10:45)
[2017-01-14] MEDS: SODIUM CHLORIDE 0.9% 1000ML 1,000 ML IV SCH ×2 (12:25→23:31)
[2017-01-14 15:10] VITALS: BP 97/63; PULSE 76; TEMP 36.8; O2SAT 99
--- NOTE | 2017-01-14 15:58 | Progress Note ---
Subjective Date of Service: Jan 14, 2017. Subjective Pt evaluation today including: conversation w/ patient, physical exam, lab review, review of inpatient medication list Pain: controlled PO Intake: poor appetite Voiding: salgado catheter in place patient doing well, laying flat with HOB raised slightly minimal headache, back pain moderately controlled little appetite today, mild nausea, no vomiting reviewed labs, Hb 10.7 Review of Systems Constitutional: + weakness, + fatigue Musculoskeletal: + joint pain (low back) All Other Systems: Reviewed and Negative Medications Current Inpatient Medications Medications (Trade) Dose Ordered Sig/Omar Route Start Time Stop Time Status Last Admin Dose Admin Diphenhydramine HCl (Benadryl Cap) 25 mg Q6H PRN PO 01/13/17 11:30 02/12/17 11:29 Magnesium Hydroxide (Milk Of Magnesia Susp) 30 ml DAILY PRN PO 01/13/17 11:30 02/12/17 11:29 Bisacodyl (Dulcolax Supp) 10 mg DAILY PRN [place] 01/14/17 06:00 02/13/17 05:59 Bisacodyl (Dulcolax Tab) 5 mg DAILY PRN PO 01/14/17 06:00 02/13/17 05:59 Polyethylene (Miralax Powder Packet) 17 gm DAILY PO 01/14/17 09:00 02/13/17 08:59 Lorazepam 1 mg/ Syringe 0.5 ml @ 1 mls/min Q6H PRN IV 01/13/17 11:30 02/12/17 11:29 Lorazepam (Ativan Tab) 1 mg Q6H PRN PO 01/13/17 11:30 02/12/17 11:29 Metoclopramide HCl (Reglan Inj) 10 mg Q6H PRN IV 01/13/17 11:30 02/12/17 11:29 01/14/17 08:48 10 MG Ondansetron HCl (Zofran Inj) 4 mg Q6H PRN IV 01/13/17 11:30 02/12/17 11:29 01/14/17 08:12 4 MG Promethazine HCl 12.5 mg/Sodium Chloride 50.5 ml @ 202 mls/hr Q6H PRN IV 01/13/17 11:30 02/12/17 11:29 01/13/17 12:55 202 MLS/HR Hydromorphone HCl (Dilaudid Inj) 1.5 mg Q3H PRN IV 01/14/17 08:00 01/28/17 07:59 Oxycodone/ Acetaminophen (Percocet 5-325mg Tab) 2 tab Q4H PRN PO 01/14/17 08:00 01/28/17 07:59 Hydromorphone HCl (Dilaudid Inj) 1 mg Q3H PRN IV 01/14/17 08:00 01/28/17 07:59 Oxycodone/ Acetaminophen (Percocet 5-325mg Tab) 1 tab Q4H PRN PO 01/14/17 08:00 01/28/17 07:59 Acetaminophen (Tylenol Tab) 650 mg Q6H PRN PO 01/13/17 11:30 02/12/17 11:29 Future Hold Dexamethasone Sodium Phosphate 10 mg/Syringe 2.5 ml @ 1 mls/min Q8H IV 01/13/17 18:00 01/15/17 02:03 01/14/17 10:40 1 MLS/MIN Sodium Chloride 1,000 ml @ 80 mls/hr [id number] IV 01/13/17 11:20 02/12/17 11:19 01/14/17 12:25 80 MLS/HR Montelukast Sodium (Singulair Tab) 10 mg HS PO 01/13/17 21:00 02/12/17 20:59 01/13/17 21:20 10 MG Simvastatin (Zocor Tab) 40 mg QAM PO 01/14/17 09:00 02/13/17 08:59 01/14/17 10:45 40 MG Warfarin Sodium (Coumadin Tab) 8 mg DAILY@1600 PO 01/13/17 16:00 02/12/17 15:59 Future Hold Pantoprazole Sodium (Protonix Tab) 40 mg QAM PO 01/14/17 09:00 02/13/17 08:59 01/14/17 10:45 40 MG Paroxetine HCl (pAXil) 30 mg QAM PO 01/14/17 09:00 02/13/17 08:59 01/14/17 10:45 30 MG Acetaminophen 1000 mg/Empty Bag 100 ml @ 400 mls/hr Q8H IV 01/13/17 16:00 02/12/17 15:14 10/17/17 07:37 400 MLS/HR Objective Vital Signs Date Time Temp Pulse Resp B/P (MAP) Pulse Ox O2 Delivery O2 Flow Rate FiO2 01/14/17 15:10 36.8 76 18 97/63 (74) 99 Nasal Cannula 2.0 01/14/17 10:32 36.4 76 16 105/68 (80) 100 Nasal Cannula 4.0 01/14/17 07:53 Nasal Cannula 4.0 01/14/17 07:23 36.4 86 16 95/61 (72) 98 Room Air 01/14/17 06:20 101/67 (78) 01/14/17 03:03 36.5 86 16 93/59 (70) 97 Nasal Cannula 4.0 01/13/17 23:15 Nasal Cannula 4.0 01/13/17 22:45 37.0 85 16 114/71 (85) 99 Nasal Cannula 4.0 01/13/17 19:44 36.5 84 18 125/77 (93) 100 Nasal Cannula 4.0 01/13/17 16:30 98 Nasal Cannula 4.0 Physical Exam General Appearance: no apparent distress, + obese Eyes: normal inspection, EOMI, sclerae normal ENT: normal ENT inspection, hearing grossly normal, pharynx normal Neck: supple, no adenopathy, no JVD, trachea midline Respiratory/Chest: chest non-tender, lungs clear, normal breath sounds, no respiratory distress, no accessory muscle use Cardiovascular: regular rate, rhythm, no edema, no gallop, no JVD, no murmur Abdomen: normal bowel sounds, non tender, soft, no organomegaly Extremities: no pedal edema, no calf tenderness, normal capillary refill, pelvis stable, + pertinent finding (decreased ROM of back) Neurologic/Psychiatric: 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 Mcdonald on 01/13/17 including decompression L2-S1 bilaterally, L2, L3, L4, L5 and S1 nerve roots bilaterally, removal of old implants, L3, L4, L5 and S1, Instrumentation and fusion L2-L3, lumbar spine, and removal and revision of old implant at L5-S1. S/p spinal surgery with dura tear - laying flat in bed, activity per Dr. Mcdonald - Pain management, bowel regimen, PT/OT per primary team - Anticoagulation with coumadin was held prior to spinal surgery- resume when okay with surgery - Hgb at 10.7 and was in the 12s prior to this hospitalization - will repeat H/ h tomorrow - hemovac drain in place - NSS @80 ml/hr, continue this as her oral intake is suboptimal - salgado cath draining clear yellow urine, keep in place since patient not moving GERD - Continue ppi HLD - Continue zocor Morbid obesity - Diet and exercise should be discussed prior to discharge. - PT/OT HAYDEE - Pt has cpap machine from home Hx of DVT and PE - Coumadin 8 mg daily per family - Hold for now, resume per surgery DVT ppx: teds, scds CODE STATUS: FULL CODE Disposition: From home, discharge per primary team
[2017-01-14] MEDS ORDERED: NURSING VERBAL MED ORDER ONE (18:30)
[2017-01-14] MEDS: OXYCODONE HCL IR 5 MG TAB (IMMEDIATE RELEASE) PO PRN (20:54)
[2017-01-14] MEDS: MONTELUKAST SOD 10 MG TAB PO SCH (20:54)
[2017-01-14 23:42] VITALS: BP 109/60; PULSE 102; TEMP 36.6; O2SAT 92
[2017-01-15] MEDS: DEXAMETHASONE INJ 10 MG in SYRINGE 0 ML IV SCH (01:58)
[2017-01-15] MEDS ORDERED: NURSING VERBAL MED ORDER ONE ×2 (05:30→14:30)
[2017-01-15 06:56] VITALS: BP 92/54; PULSE 73; TEMP 36.4; O2SAT 92
[2017-01-15] MEDS: ACETAMINOPHEN IV 1,000 MG in EMPTY BAG 0 ML IV SCH ×3 (07:50→23:22)
[2017-01-15] MEDS: POLYETHYLENE (MIRALAX) 17 GM PACK PO SCH (08:09)
[2017-01-15] MEDS: PANTOprazole SOD 40 MG TAB PO SCH (08:10)
[2017-01-15] MEDS: PAROXETINE 30 MG TAB PO SCH (08:10)
[2017-01-15] MEDS: SIMVASTATIN 40 MG TAB PO SCH (08:10)
--- NOTE | 2017-01-15 11:41 | Discharge Instructions ---
Discharge Instructions Date of Service Jan 15, 2017. Admission Reason for Admission: Nerve Root Compression L5-S1, Lumbar Radicultits L Discharge Discharge Diagnosis / Problem: same Discharge Goals Goal(s): Improve function Activity Recommendations Activity Limitations: as noted below Lifting Limitations: until after follow-up appointment Exercise/Sports Limitations: until after follow-up appointment May Resume Sexual Activity: after follow-up appointment Shower/Bathe: keep incision dry . Instructions / Follow-Up Instructions / Follow-Up MEDICATIONS: Please take your prescriptions as instructed at your pre-op appointment. SPECIAL CARE: The following information is intended to answer some of the common questions and concerns regarding your surgery. Each patient is an individual and receives individual counselling throughout the course of treatment, from diagnosis to surgery all the way through recovery. What follows is not an exhaustive list, but should be a useful guide to some of the common questions and concerns patients have regarding their surgeries. These are not provided to keep you from calling us; rather, they give you something accurate and concrete to reference as you recover from your procedure. If you need us, we are available to you. As always, if you are not sure about something, call us at [phone]. MEDICAL EMERGENCIES: For these conditions, call 911 or go to your local hospital-based Emergency Department - not [facility] or equivalent. * Paralysis * Severe chest pain or difficulty breathing * Swelling or redness of either leg Spine procedures can be rather complex and though complications are rare, they do occur. In such cases, effective advice regarding emergency situations cannot always be addressed over the telephone. You may be referred to the emergency department for more effective management of your problem. Activity Limitations: It is important to give your body time to heal, so please limit your activities : * In general, don't do anything that moves your spine too much. You should avoid contact sports, twisting or heavy lifting while you recover. * 5-10 pounds is all you should attempt to lift. * You should not plan on driving for approximately 3 weeks and you should avoid traveling more than 30-45 minutes at a time. Longer trips should be broken down with walking breaks spaced appropriately. * Physical therapy is not usually required. * Walking and good posture practices will help you recover and regain your function. * Avoid straining or sudden changes in position. * In general, the goal is to take it easy and recover. Don't cause any new problems. Just relax. Showers: * Do not take a bath, use a Jacuzzi or hot tub or otherwise submerge your incision. * It is usually safe to take a shower 4-5 days after your surgery. * Your incision does not require any special creams or ointments. * Simply clean it with soap and water, dry and re-dress with a clean bandage afterwards. Incision: * Keep incision clean, dry and protected until your first follow-up appointment. * Some amount of drainage and redness is normal. Any drainage should be fairly clear and not have a foul odor. * If you feel anything is wrong or you have excessive drainage, please call us. * Your stitches and diego will be removed 10-14 days after your surgery. At the time of your first post-op visit. * Neck surgeries are typically closed with a suture underneath the skin. The steri-strips over the incision should be maintained until we see you in the office. Bracing: * You may be provided with a back or neck brace to encourage good posture and prevent injury. It will remind you not to do too much as you heal and will alert others to the fact that you have had a surgery. * Back braces may be removed for showers and when you are resting at home. They must be worn when you are walking around for any period of time or for travel. * For neck surgery, you will likely be provided with two cervical collars. The soft collar ([place] or foam rubber) is worn most commonly throughout the day and while sleeping. The plastic collar (provided at the hospital) is for showering/bathing. * Except while eating, collars should remain in place. More specifically, bracing is provided for a purpose and should be worn. * Please obtain your brace or collars prior to your operation and bring them to the hospital with you on the day of surgery. * You should also bring your collars to your post-op appointment with Dr. Mcdonald. You should always take good care of your body and practice healthy habits, especially following surgery. You should: * Follow your doctor's treatment plan * Sit and stand properly with good posture (ears over shoulders, shoulders over hips) Don't slouch * Learn to lift correctly * Exercise regularly (low-impact aerobic exercise is especially good, but check with your doctor first) * Generally, be up and walking for 5-10 minutes at a time at least 3-4 times per day from the day you get home * Increasing walking to tolerance until you can walk for 20-30 minutes at a time * Attain and maintain a healthy body weight * Eat healthy foods ( a well-balanced, low-fat diet rich in fruits and vegetables) and get enough calcium * Avoid excessive use of alcohol When to call our office - If you notice any of the following: * Increased pain not relieve by pain medicine * Fevers greater then 100 degrees F, chills or flu symptoms * Increased redness around incision * Drainage from the incision that is not clear * Any foul smelling drainage * Swelling or fluid collection beneath the skin Miscellaneous: * In the hospital, you may be given a walker or cane for support while walking. These are temporary needs and are intended to prevent injuries due to falls. You may discontinue them when you feel strong and steady enough on your feet. * Sleep in a comfortable position. We find that many patients find a lounge chair or recliner with several pillows to be beneficial in the early post-operative period. * The support stockings should be used for 7-10 days and may be discontinued when you are back to walking more and conducting usual household activities. No problem is insignificant. We are here to help you and get you well. Contact us at [phone]. Definitions: Foraminotomy: If part of the disc or a bone spur (osteophyte) is pressing on a nerve as it leaves the vertebra (through an exit called the foramen), a foraminotomy may be done. Otomy means "to make an opening." A foraminotomy is making the opening of the foramen larger, so the nerve can exit without being compressed. Laminotomy: Similar to the foraminotomy, a laminotomy makes a larger opening, this time in your bony plate protecting your spinal canal and spinal cord (the lamina). The lamina may be pressing on your nerve, so the surgeon may make more room for the nerves using a laminotomy. Laminectomy: Sometimes, a laminotomy is not sufficient. The surgeon may need to remove all or part of the lamina. This procedure is called a laminectomy. This can often be done at many levels without any harmful effects. Current Hospital Diet Patient's current hospital diet: Regular Diet Discharge Diet Recommended Diet: Regular Diet Procedures Procedures Performed: L2-S1 Decompression, Removal Hardware L3-S1, Fusion L2-L3, Revision of construct L5-S1, Repair of dural tear Pending Studies Studies pending at discharge: no Laboratory Results Lipid Panel Test 01/06/17 09:00 Range/Units Triglycerides Level 226 H 0-150 mg/dl Cholesterol Level 194 0-200 mg/dl HDL Cholesterol 45 mg/dl LDL Cholesterol Direct 126 mg/dl Cholesterol/HDL Ratio 4.3 LDL Cholesterol, Calculated mg/dl Medical Emergencies . Who to Call and When: Medical Emergencies: If at any time you feel your situation is an emergency, please call 911 immediately. . Non-Emergent Contact Non-Emergency issues call your: Surgeon Call Non-Emergent contact if: wound has increased pain . "Provider Documentation" section prepared by Ruddy Mcdonald. . VTE Core Measure Inpt VTE Proph given/why not?: Treatment not indicated
[2017-01-15 12:03] VITALS: BP 138/79; PULSE 77; O2SAT 100
[2017-01-15 14:50] VITALS: BP 113/67; PULSE 73; TEMP 36.6; O2SAT 98
[2017-01-15] MEDS ORDERED: WARFARIN SOD 6 MG TAB PO SCH (16:00)
[2017-01-15] MEDS: MONTELUKAST SOD 10 MG TAB PO SCH (21:28)
[2017-01-15 22:50] VITALS: BP 120/71; PULSE 76; TEMP 36.5; O2SAT 96
[2017-01-16] MEDS: OXYCODONE HCL IR 5 MG TAB (IMMEDIATE RELEASE) PO PRN ×2 (02:52→13:29)
[2017-01-16 07:45] VITALS: O2SAT 96
[2017-01-16 07:47] VITALS: BP 112/67; PULSE 70; TEMP 36.2; O2SAT 96
[2017-01-16] MEDS: ACETAMINOPHEN IV 1,000 MG in EMPTY BAG 0 ML IV SCH ×3 (08:15→23:22)
[2017-01-16] MEDS: ONDANSETRON INJ 2 MG/ML 2 ML VIAL IV PRN (08:15)
[2017-01-16] MEDS: POLYETHYLENE (MIRALAX) 17 GM PACK PO SCH (09:00)
[2017-01-16] MEDS: PAROXETINE 30 MG TAB PO SCH (09:09)
[2017-01-16] MEDS: SIMVASTATIN 40 MG TAB PO SCH (09:09)
[2017-01-16] MEDS: PANTOprazole SOD 40 MG TAB PO SCH (09:09)
--- NOTE | 2017-01-16 10:15 | Progress Note ---
Subjective Date of Service: Jan 16, 2017. Subjective Pt evaluation today including: conversation w/ patient, physical exam, review of inpatient medication list Pain: pain controlled PO Intake: adequate Voiding: no voiding problems patient doing well, planning on going home this afternoon pain controlled, eating well, + flatus but no BM, planning on taking Miralax when she gets home discussed Coumadin, started at 12mg yesterday, should take 12mg when she gets home and then resume 8mg tomorrow all questions answered Review of Systems Musculoskeletal: + joint pain (low back pain) All Other Systems: Reviewed and Negative Medications Current Inpatient Medications Medications (Trade) Dose Ordered Sig/Omar Route Start Time Stop Time Status Last Admin Dose Admin Diphenhydramine HCl (Benadryl Cap) 25 mg Q6H PRN PO 01/13/17 11:30 02/12/17 11:29 Magnesium Hydroxide (Milk Of Magnesia Susp) 30 ml DAILY PRN PO 01/13/17 11:30 02/12/17 11:29 Bisacodyl (Dulcolax Supp) 10 mg DAILY PRN [place] 01/14/17 06:00 02/13/17 05:59 Bisacodyl (Dulcolax Tab) 5 mg DAILY PRN PO 01/14/17 06:00 02/13/17 05:59 Polyethylene (Miralax Powder Packet) 17 gm DAILY PO 01/14/17 09:00 02/13/17 08:59 01/15/17 08:09 17 GM Lorazepam 1 mg/ Syringe 0.5 ml @ 1 mls/min Q6H PRN IV 01/13/17 11:30 02/12/17 11:29 Lorazepam (Ativan Tab) 1 mg Q6H PRN PO 01/13/17 11:30 02/12/17 11:29 Metoclopramide HCl (Reglan Inj) 10 mg Q6H PRN IV 01/13/17 11:30 02/12/17 11:29 01/14/17 08:48 10 MG Ondansetron HCl (Zofran Inj) 4 mg Q6H PRN IV 01/13/17 11:30 02/12/17 11:29 01/16/17 08:15 4 MG Promethazine HCl 12.5 mg/Sodium Chloride 50.5 ml @ 202 mls/hr Q6H PRN IV 01/13/17 11:30 02/12/17 11:29 01/13/17 12:55 202 MLS/HR Hydromorphone HCl (Dilaudid Inj) 1.5 mg Q3H PRN IV 01/14/17 08:00 01/28/17 07:59 Hydromorphone HCl (Dilaudid Inj) 1 mg Q3H PRN IV 01/14/17 08:00 01/28/17 07:59 Acetaminophen (Tylenol Tab) 650 mg Q6H PRN PO 01/13/17 11:30 02/12/17 11:29 Future Hold Montelukast Sodium (Singulair Tab) 10 mg HS PO 01/13/17 21:00 02/12/17 20:59 01/15/17 21:28 10 MG Simvastatin (Zocor Tab) 40 mg QAM PO 01/14/17 09:00 02/13/17 08:59 01/16/17 09:09 40 MG Warfarin Sodium (Coumadin Tab) 8 mg DAILY@1600 PO 01/13/17 16:00 02/12/17 15:59 Future hold Pantoprazole Sodium (Protonix Tab) 40 mg QAM PO 01/14/17 09:00 02/13/17 08:59 01/16/17 09:09 40 MG Paroxetine HCl (pAXil) 30 mg QAM PO 01/14/17 09:00 02/13/17 08:59 01/16/17 09:09 30 MG Acetaminophen 1000 mg/Empty Bag 100 ml @ 400 mls/hr Q8H IV 01/13/17 16:00 02/12/17 15:14 01/16/17 08:15 400 MLS/HR Oxycodone HCl (Roxicodone Immediate Rel Tab) `1-2 tabs for pain 1 tab ... Q6H PRN PO 01/14/17 18:45 01/28/17 18:44 01/16/17 02:52 5 MG Objective Vital Signs Date Time Temp Pulse Resp B/P (MAP) Pulse Ox O2 Delivery O2 Flow Rate FiO2 01/16/17 07:47 36.2 70 16 112/67 (82) 96 Room Air 01/16/17 07:45 96 Room Air 01/15/17 23:15 Nasal Cannula 2.0 01/15/17 22:50 36.5 76 18 120/71 (87) 96 Room Air 01/15/17 16:00 Room Air 01/15/17 14:50 36.6 73 16 113/67 (82) 98 Room Air 01/15/17 12:03 77 100 Physical Exam General Appearance: no apparent distress, + obese Neck: supple, no adenopathy, no JVD, trachea midline Respiratory/Chest: chest non-tender, lungs clear, normal breath sounds, no respiratory distress, no accessory muscle use Cardiovascular: regular rate, rhythm, no edema, no gallop, no JVD, no murmur Abdomen: normal bowel sounds, non tender, soft, no organomegaly Extremities: no pedal edema, no calf tenderness, normal capillary refill, pelvis stable, + pertinent finding (low back pain, decreased ROM) 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 Mcdonald on 01/13/17 including decompression L2-S1 bilaterally, L2, L3, L4, L5 and S1 nerve roots bilaterally, removal of old implants, L3, L4, L5 and S1, Instrumentation and fusion L2-L3, lumbar spine, and removal and revision of old implant at L5-S1. S/p spinal surgery with dura tear - increased activity, ambulating in halls, sat in chair for breakfast - pain controlled - will be d/c to home by Dr. Mcdonald GERD - Continue ppi HLD - Continue zocor Morbid obesity - Diet and exercise should be discussed prior to discharge. - PT/OT HAYDEE - Pt has cpap machine from home Hx of DVT and PE - per plan, will give 12mg Coumadin today and then 8mg tomorrow, follow up with PCP for PT/INR DVT ppx: teds, scds CODE STATUS: FULL CODE
[2017-01-16] MEDS ORDERED: KETO10TA PO (12:15)
[2017-01-16] MEDS ORDERED: FRCT/ PO (15:10)
[2017-01-16] MEDS ORDERED: METH4PAK PO (15:10)
[2017-01-16 15:19] VITALS: BP 101/61; PULSE 74; TEMP 36.8; O2SAT 94
[2017-01-16] MEDS: SODIUM CHLORIDE 0.9% 1000ML 1,000 ML IV SCH (16:18)
[2017-01-16] MEDS: MONTELUKAST SOD 10 MG TAB PO SCH (20:50)
[2017-01-16 22:49] VITALS: BP 99/63; PULSE 75; TEMP 36.8; O2SAT 93
[2017-01-17] MEDS: SODIUM CHLORIDE 0.9% 1000ML 1,000 ML IV SCH (05:01)
[2017-01-17 06:16] LABS: INR 1.3 (0.9-1.1)
[2017-01-17 06:56] VITALS: BP 117/75; PULSE 72; TEMP 36.5; O2SAT 94
[2017-01-17 07:20] VITALS: O2SAT 94
[2017-01-17] MEDS: ACETAMINOPHEN IV 1,000 MG in EMPTY BAG 0 ML IV SCH (07:38)
[2017-01-17] MEDS: POLYETHYLENE (MIRALAX) 17 GM PACK PO SCH (09:00)
[2017-01-17] MEDS: PANTOprazole SOD 40 MG TAB PO SCH (09:14)
[2017-01-17] MEDS: SIMVASTATIN 40 MG TAB PO SCH (09:14)
[2017-01-17] MEDS: PAROXETINE 30 MG TAB PO SCH (09:14)
--- NOTE | 2017-01-17 10:44 | DISCHARGE SUMMARY ---
Radhika was admitted for very elaborate spinal stenosis reconstructive surgery 5 days ago. She has improved, stable. She had fairly significant postoperative spinal headache. She eventually recovered with hydration. She was seen on rounds twice a day each day. As of the evening of 01/16/2017, in my opinion she was improved, stable. We discharged her home on 01/17/2017. She is improved, stable. Still has spinal headache but her wound is quieting down and becoming clean and I am not overly worried. She is able to rest, get to the bathroom and home, transfer and do quite well. PLAN: We will discharge her home today. She has many medications for pain control including Medrol Dosepak, [place], Fiorinal for headaches and Toradol. She will keep the wound clean and dry at all times. Dressing can be changed every 24-48 hours. She has home nursing involved. She was given instruction precautions. We will see her back in approximately 1 week.
== END 2017-01-17 13:45 | disposition home health service (06) | DRG 460 ==
LOC: C.ACU 05:22 → C.3E 07:20 → ENRESERV 12:16
PROVIDERS: ADMIT Orthopaedic Surgery Orthopaedic Surgery of the Spine; ATTEND Orthopaedic Surgery Orthopaedic Surgery of the Spine
PROC: 0SG00J1 Fusion of Lumbar Vertebral Joint with Synthetic Substitute, Posterior Approach, Posterior Column, Open Approach (ICD-10-PCS; principal; 2017-01-13 07:30)
PROC: 0SP00JZ Removal of Synthetic Substitute from Lumbar Vertebral Joint, Open Approach (ICD-10-PCS; principal; 2017-01-13 07:30)
PROC: 0SP30AZ Removal of Interbody Fusion Device from Lumbosacral Joint, Open Approach (ICD-10-PCS; principal; 2017-01-13 07:30)
PROC: 00Q20ZZ Repair Dura Mater, Open Approach (ICD-10-PCS; principal; 2017-01-13 07:30)
DX: M48.061 Spinal stenosis, lumbar region without neurogenic claudication (principal); G83.4 Cauda equina syndrome; G96.11 Dural tear; Z68.41 Body mass index [BMI] 40.0-44.9, adult; T88.59XA Other complications of anesthesia, initial encounter; R51 Headache; M51.36 Other intervertebral disc degeneration, lumbar region; M53.2X6 Spinal instabilities, lumbar region; E66.01 Morbid (severe) obesity due to excess calories; K21.9 Gastro-esophageal reflux disease without esophagitis; G47.33 Obstructive sleep apnea (adult) (pediatric); Z79.01 Long term (current) use of anticoagulants; Z79.899 Other long term (current) drug therapy; Z86.718 Personal history of other venous thrombosis and embolism

== ENCOUNTER 2017-01-22 12:16 | Inpatient (IN) | payer OTHER, BC ==
[~2017-01-22] VITALS: Ht 162.6 cm; Wt 88.0 kg
[~2017-01-22 12:16] MED LIST changes: +DIPH1TAB87 PO; +FRCT/ PO; +KETO10TA PO; +METH4PAK PO
[2017-01-22] MEDS ORDERED: MoRPHine SULFATE 4 MG/ML 1 ML CARP\\VIAL IV STA (12:42)
[2017-01-22] MEDS ORDERED: ONDANSETRON INJ 2 MG/ML 2 ML VIAL IV STA (12:42)
[2017-01-22] MEDS ORDERED: SODIUM CHLORIDE 0.9% 1000ML 1,000 ML IV STA (12:42)
--- NOTE | 2017-01-22 12:43 | EMERGENCY ROOM VISIT NOTE ---
History Report prepared by Mallory: Isha Woody Under the Supervision of: Dr. Krishna Hussein M.D. First contact with patient: 12:34 Chief Complaint: HEADACHE Stated Complaint: SEVERE HEADACHE History of Present Illness The patient is a 66 year old female who presents to the Emergency Room with complaints of headache. The patient had Dr. Mcdonald replace all the hardware in her back on January 13. The patient has had headache since her surgery but states that it worsened last night. She is photophobic and nauseous. She denies any shortness of breath, numbness or weakness in legs, urinary symptoms, loss of appetite, or vomiting. The patient's headache is worst behind eyes and in her neck. Her headache worsens when she sits up. The patient restarted Coumadin a couple days ago. She states that her surgery site has not had any puss or drainage and replaced her bandage last this morning. She has a history of DVTs and PEs. Source of History: patient, spouse/significant other Onset: 9 days ago Position: head Quality: ache Timing: worsening Modifying Factors (Worsening): other (sitting) Associated Symptoms: + nausea, No chest pain, No SOB, No vomiting, No urinary symptoms, No weakness, No numbness Review of Systems See HPI for pertinent positives & negatives. A total of 10 systems reviewed and were otherwise negative. Past Medical & Surgical Medical Problems: (1) DVT (deep venous thrombosis) (2) Lumbar canal stenosis (3) Pulmonary embolism (4) spinal headache Old medical records were reviewed. Nurse's notes were reviewed and I agree with. Family History No pertinent family history stated. Social History Smoking Status: Never Smoker Drug Use: none Marital Status: Housing Status: lives with family Current/Historical Medications Scheduled Methylprednisolone (Medrol Dosepak), 1 PKT PO UD Montelukast Sodium (Singulair), 10 MG PO QAM Omeprazole (Prilosec), 20 MG PO QAM Paroxetine Hcl (Paxil), 30 MG PO QAM Simvastatin (Zocor), 40 MG PO QAM Warfarin Sod (Coumadin), 8 MG PO UD Scheduled PRN Acetamin/Butalbital/Caffeine (Fioricet), 1 TAB PO Q6H PRN for headache Albuterol Hfa (Ventolin Hfa), 2-4 PUFFS INH Q6H PRN for Shortness of Breath Diphenhydramine Hcl (Benadryl Allergy), 25 MG PO DIRECTED PRN for ALLERGIC REACTION Ketorolac (Toradol), 10 MG PO TID PRN for Pain Allergies Coded Allergies: Enoxaparin (Verified Allergy, Intermediate, HIVES, 01/22/17) Cephalosporins (Verified Allergy, Mild, RASH HIVES, 01/22/17) Penicillins (Verified Allergy, Mild, RASH HIVES, 01/22/17) Vancomycin (Verified Allergy, Mild, RASH HIVES, RED STRAKING, EYES SWOLLEN , 01/22/17) Hydrochlorothiazide (Unverified Allergy, Unknown, UNKNOWN REACTION, ) PER PCP RECORDS Macrolides and Ketolides (Verified Allergy, Unknown, RASH/HIVES TO MACROLIDES, 01/22/17) Sulfa Antibiotics (Verified Allergy, Unknown, RASH/HIVES TO SULFA DRUGS, 01/22/17) Iodine (Verified Adverse Reaction, Mild, IODINE CONTRAST -- N/V, 01/22/17) Meperidine (Verified Adverse Reaction, Mild, N/V, 01/22/17) Sertraline (Unverified Adverse Reaction, Unknown, UNKNOWN REACTION, ) PER PCP RECORDS Physical Exam Vital Signs Date Time Temp Pulse Resp B/P (MAP) Pulse Ox O2 Delivery O2 Flow Rate FiO2 01/22/17 13:18 68 18 137/75 98 Room Air 01/22/17 12:21 36.5 74 20 117/69 97 Room Air Physical Exam General: Non-ill, uncomfortable, appearing older female in no acute distress. HEENT: Normal cephalic atraumatic. Pupils are equal round and reactive to light. Extraocular movements are intact. Oropharynx is pink with moist mucous membranes. No swelling of the mouth lips or tongue. Neck: Supple with a midline trachea. No meningeal signs or stiffness, no JVD or bruits. No Stridor. Chest: Clear to auscultation bilaterally. No wheezes or rhonchi. No increased work of breathing. Heart: regular rate and rhythm. Abdomen: Soft nontender, nondistended without rebound guarding or rigidity. Extremities: No cyanosis clubbing or edema. No calf tenderness or assymetry Spine/Back. Non tender to palpation. No CVA tenderness. Well healing back incision without redness or warmth, small drop of clear drainage centrally. Skin: Good turgor without rashes. Neurologic exam: Cranial nerves two through 12 are intact. Motor and sensation are intact and symmetrical throughout. Medical Decision & Procedures ER Provider Diagnostic Interpretation: Radiology results as stated below per my review and radiologist interpretation: CT SCAN OF THE BRAIN WITHOUT IV CONTRAST FINDINGS: Brain parenchyma: There are age-related involutional changes noting minimal subcortical and periventricular microangiopathic change. There is no hemorrhage, mass effect, or evidence of acute territorial ischemia by CT criteria. Rocha-white matter is preserved. No extra-axial fluid collection is seen. Ventricles, sulci, cisterns: Prominent secondary to involutional change. Intracranial vasculature: There is atherosclerotic calcification of the cavernous carotid arteries. Calvarium: Unremarkable. Sinuses and mastoids: The visualized paranasal sinuses are clear. The mastoid air cells are well pneumatized. Orbits: The bony orbits are grossly intact. IMPRESSION: There is no hemorrhage, mass effect, or evidence of acute territorial ischemia by CT criteria. Electronically signed by: Jonas Gonzalez M.D. Laboratory Results Laboratory studies as stated above per my review. Medications Administered Medications (Trade) Dose Ordered Sig/Omar Route Start Time Stop Time Status Last Admin Dose Admin Morphine Sulfate (MoRPHine SULFATE INJ) 4 mg NOW STAT IV 01/22/17 12:42 01/22/17 12:45 DC 01/22/17 13:15 4 MG Ondansetron HCl (Zofran Inj) 4 mg NOW STAT IV 01/22/17 12:42 01/22/17 12:45 DC 01/22/17 13:14 4 MG Sodium Chloride 1,000 ml @ 999 mls/hr Q1H1M STAT IV 01/22/17 12:42 01/22/17 13:46 DC 01/22/17 13:14 999 MLS/HR Lactated Ringer's 1,000 ml @ 125 mls/hr Q8H IV 01/22/17 13:15 02/21/17 13:14 01/22/17 16:10 125 MLS/HR ED Course 1235: Past medical records reviewed. The patient was evaluated in room A4B, and a complete history and physical examination were performed. 1242: Sodium Chloride 1000 ml @ 999 mls/hr IV, Zofran Inj 4 mg, Morphine Sulfate 4 mg IV. 1314: I discussed the patient's case with Dr. Dimitris Sealss. The patient will be evaluated for further management. 1333: I reevaluated the patient, she is on her was to CT. Medical Decision Differential diagnoses include: CSF leak, intracranial bleed, infection, electrolyte metabolic abnormality. This patient comes in as described above. She was placed in room A4. She just recently had major spinal surgery done by Dr. Mcdonald, and has had an increasing headache. It is worse when she stands. On exam there is a small amount of clear drainage centrally but the wound otherwise looks well. IV access established and did a CAT scan of her head and it was unremarkable is no hemorrhage. She is on Coumadin her INR is only mildly elevated. White count mildly elevated. She's no fever. she has no meningeal sign. She's had no significant electrolyte or metabolic abnormality. I did discuss case with Dr. Mcdonald and he does want to admit her for pain management and possible further intervention/surgery. The patient and her were happy with the plan and she was admitted. Medication Reconcilliation Current Medication List: was personally reviewed by me Blood Pressure Screening Patient's blood pressure: Normal blood pressure Consults Time Called: 1310 Consulting Physician: Dr. Shanks [facility] Returned Call: [phone] Discussed the patient's case. The patient will be evaluated for further management. Impression Primary Impression: Headache Additional Impression: CSF leak Scribe Attestation The scribe's documentation has been prepared under my direction and personally reviewed by me in its entirety. I confirm that the note above accurately reflects all work, treatment, procedures, and medical decision making performed by me. Departure Information Dispostion Being Evaluated By Hospitalist Referrals Lanie Plasencia PA-C (PCP) Patient Instructions [facility] Problem Qualifiers Primary Impression: Headache Headache type: unspecified
[2017-01-22] MEDS ORDERED: KETO10TA PO (13:13)
[2017-01-22] MEDS ORDERED: ONDANSETRON INJ 2 MG/ML 2 ML VIAL IV PRN (13:15)
[2017-01-22] MEDS ORDERED: ACETAMINOPHEN 325 MG TAB PO PRN (13:15)
[2017-01-22] MEDS ORDERED: PROMETHAZINE HCL INJ 12.5 MG in SODIUM CHLORIDE 0.9% 50ML 50 ML IV PRN (13:15)
[2017-01-22] MEDS ORDERED: OXYCODONE/ACETAMINOPHEN 5-325 TAB PO PRN (13:15)
[2017-01-22] MEDS ORDERED: HYDROmorphone INJ 2 MG/ML SYR/VIAL IV PRN (13:30)
[2017-01-22 14:00] LABS: BASO % 0.2 %; BASO ABS # 0.03 K/uL (0-0.2); COMPLETE YES; EOS % 0.5 %; IG% 0.6 %; LYMPH % 17.1 %; LYMPH ABS # 2.17 K/uL (1.2-3.4); MEAN CELL VOLUME 80.3 fL (80-100); MEAN CORPUSCULAR HEMOGLOBIN 24.6 pg (25-34); MEAN CORPUSCULAR HGB CONC 30.6 g/dl (32-36); MEAN PLATELET VOLUME 9.4 fL (7.4-10.4); MONO % 7.8 %; NEUT % 73.8 %; PLATELET COUNT 408 K/uL (130-400); RED BLOOD COUNT 3.86 M/uL (4.2-5.4); WHITE BLOOD COUNT 12.72 K/uL (4.8-10.8)
--- NOTE | 2017-01-22 14:03 | DIAGNOSTIC IMAGING REPORT ---
CT SCAN OF THE BRAIN WITHOUT IV CONTRAST CLINICAL HISTORY: Headache. Recent spine surgery. Anticoagulated patient. COMPARISON STUDY: No priors. TECHNIQUE: Unenhanced axial CT scan of the brain is performed from the vertex to the skull base. CT DOSE: 537.48 mGy.cm FINDINGS: Brain parenchyma: There are age-related involutional changes noting minimal subcortical and periventricular microangiopathic change. There is no hemorrhage, mass effect, or evidence of acute territorial ischemia by CT criteria. Rocha-white matter is preserved. No extra-axial fluid collection is seen. Ventricles, sulci, cisterns: Prominent secondary to involutional change. Intracranial vasculature: There is atherosclerotic calcification of the cavernous carotid arteries. Calvarium: Unremarkable. Sinuses and mastoids: The visualized paranasal sinuses are clear. The mastoid air cells are well pneumatized. Orbits: The bony orbits are grossly intact. IMPRESSION: There is no hemorrhage, mass effect, or evidence of acute territorial ischemia by CT criteria. Electronically signed by: Jonas Gonzalez M.D. 01/22/2017 2:02 PM Dictated Date/Time: 01/22/2017 2:00 PM
[2017-01-22 14:14] LABS: INR 1.8 (0.9-1.1); PARTIAL THROMBOPLASTIN RATIO 1.2; PROTHROMBIN TIME (PATIENT) 20.2 SECONDS (9.0-12.0)
[2017-01-22 14:17] LABS: BUN/CREATININE RATIO 24.8 (10-20); CALCIUM 7.6 mg/dl (8.5-10.1); CREATININE 0.78 mg/dl (0.60-1.20); POTASSIUM 3.7 mmol/L (3.5-5.1)
[2017-01-22 14:45] VITALS: BP 131/72; PULSE 81; TEMP 36.9; O2SAT 97; Ht 162.6 cm; Wt 88.0 kg
[2017-01-22] MEDS: LACTATED RINGER'S 1000ML 1,000 ML IV SCH ×2 (16:10→21:14)
[2017-01-22] MEDS: DEXAMETHASONE INJ 6 MG in SYRINGE 0 ML IV SCH (18:08)
--- NOTE | 2017-01-22 18:09 | HISTORY & PHYSICAL EXAMINATION ---
DATE OF ADMISSION: 01/22/2017 CHIEF COMPLAINT: Headaches. WORKING DIAGNOSIS: Spinal headache. HISTORY OF PRESENT ILLNESS: Radhika is a delightful, I just operated on her 8 days ago. We got her home safely, she ended up with significant spinal headaches over the last couple days, I admitted to the hospital somewhat urgently. She did have a bout of headaches before she left the hospital, but that fortunately did resolve. She had very complex spinal surgery, removal of the implants, removal of interbody devices. PAST MEDICAL HISTORY: Positive for asthma, blood clot 2012, angina, acid reflux, osteoarthritis. PAST SURGICAL HISTORY: Lumbar spine surgery x2, hysterectomy, tonsil and adenoids. ALLERGIES: PENICILLIN, AMPICILLIN, CEFTIN. MEDICATIONS: Prilosec, Advil, Zocor, vitamin D. SOCIAL HISTORY: She is nonsmoker, no ETOH user. REVIEW OF SYSTEMS: Significant for her headaches. Denies any chest pain, palpitation, shortness breath. No nausea, vomiting, urgency, frequency. Her lower extremities are improved from 8 days ago. OBJECTIVE EXAMINATION: GENERAL: She is alert, oriented. VITAL SIGNS: Blood pressure 130/80, pulse 80. She is 5 feet 2 inches, she is 200 pounds. She is alert and oriented. HEENT: Pupils react to light and accommodation. CARDIAC: Normal S1, S2. LUNGS: Clear. ABDOMEN: Soft, nontender. IMAGES: Demonstrate her prior fusion and prior instrumentation. ASSESSMENT: Spinal headache, postoperative. DISPOSITION: I am admitting her to the hospital today the 22 of January. We will hydrate her, we will medicate her. I actually scheduled her for surgery tomorrow the about 3:00 in the afternoon to actually patch off the spinal fluid leak assuming that I do not think she needs any further studies. CT scan of the brain was ordered to make sure there is no intradural mass is present. Her condition remains guarded, we are quite concerned, expressed that to the family. Will keep her n.p.o. after midnight.
--- NOTE | 2017-01-22 18:50 | Progress Note ---
Progress Note Date of Service Jan 22, 2017. Progress Note Patient is a 66 year old who had a revision of a lumbar fusion on 01/13 who now returns with spinal headache for dural repair. Medical history is unchanged and significant for mild asthma, valentin on cpap, remote pe history, anticoagulation on coumadin, mild gerd, anemia, and obesity. She did restart her coumadin post operatively and took her last dose on . INR on 01/22 was 1.8. Labs and studies reviewed. Airway remarkable for a small mouth and limited neck mobility, but chart review reveals an easy DL on 01/13. Succinylcholine was used for induction previously. Given her high INR we will recheck in the morning. Ideally she should be below 1.5 for this urgent by not emergent surgery. If, in the AM, she is not below 1.8, would recheck a morning dose of VitK and recheck before surgery in the afternoon. Anticipate surgery on 01/23 or 01/24, depending on her coags. CLAUDIA R/B explained. Questions answered for patient and . Consent obtained. NPO after midnight.
[2017-01-22] MEDS: GABAPENTIN 300 MG CAP PO SCH (21:14)
[2017-01-22] MEDS: DOCUSATE SODIUM 100 MG CAP PO SCH (21:14)
--- NOTE | 2017-01-22 22:37 | HISTORY & PHYSICAL EXAMINATION ---
DATE OF ADMISSION: 01/22/2017 ADDENDUM CHIEF COMPLAINT: Headaches, neck pain. HISTORY OF PRESENT ILLNESS: Radhika is delightful, I operated on her 8 days ago with fairly significant spinal instrumentation and fusion. We did a significant amount of retraction on the nerve roots and the dura itself. She presents to the Emergency Room today with photophobia, headaches, neck pain significant. She was restarted on Coumadin a couple days ago. I anticipate quite readily this is a spinal headache from a spinal fluid leak in her spinal canal and will need care. PAST MEDICAL HISTORY: Positive for DVT, canal stenosis, spinal headache. MEDICATIONS: Prilosec, Paxil, Zocor, Coumadin. SOCIAL HISTORY: Nonsmoker, non-ETOH user. PHYSICAL EXAMINATION: VITAL SIGNS: Blood pressure 130/80, respirations 18, pulse 68. HEENT: Pupils react to light. She does have photophobia. She has some rigidity. Significant head pain but no unusual markings. CARDIAC: Normal S1, S2; no S3. LUNGS: Clear. ABDOMEN: Soft, nontender. EXTREMITIES: She does move all extremities. IMPRESSION: Includes spinal headache post-surgery, otherwise fairly healthy lady who did have a deep venous thrombosis in the past, on Coumadin and moderately overweight. DISPOSITION: I am hydrating her today, admitting to my service. We will get medicine to see her as well. She will need more than likely repair of her dura tomorrow. We will try to do that tomorrow on the 23 of January, approximately 3:00 in the afternoon, we have reserved time. I am holding her Coumadin. I explained the situation to the family, it is very significant. It is going to need significant action. We will keep her n.p.o. after midnight. I am optimistic we can turn this around quite readily. SRINIVAS
[2017-01-22 23:10] VITALS: BP 114/75; PULSE 67; TEMP 37; O2SAT 94
[2017-01-23] VITALS (7 sets, daily range): BP systolic 114–130; BP diastolic 60–84; PULSE 57–83; TEMP 36.4–36.7; O2SAT 94–100
[2017-01-23] MEDS: DEXAMETHASONE INJ 6 MG in SYRINGE 0 ML IV SCH ×4 (00:12→18:00)
[2017-01-23] MEDS: LACTATED RINGER'S 1000ML 1,000 ML IV SCH ×3 (05:47→20:30)
[2017-01-23] MEDS: GABAPENTIN 300 MG CAP PO SCH ×3 (05:48→22:29)
[2017-01-23 06:00] LABS: INR 1.5 (0.9-1.1)
[2017-01-23] MEDS: KETOROLAC TROMETHAMINE 15 MG/ML VIAL IV. PRN (07:59)
[2017-01-23] MEDS: DOCUSATE SODIUM 100 MG CAP PO SCH ×2 (09:00→20:30)
[2017-01-23] MEDS ORDERED: PHYTONADIONE INJ 2.5 MG in SODIUM CHLORIDE 0.9% 50ML 50 ML IV ONE (12:45)
[2017-01-23] MEDS ORDERED: PHYTONADIONE INJ 5 MG in SODIUM CHLORIDE 0.9% 50ML 50 ML IV ONE (13:00)
--- NOTE | 2017-01-23 13:14 | Medical Consult ---
Consultation Date of Consultation: Jan 23, 2017. Attending Physician: Ruddy Mcdonald DO Reason for Consultation: Preop evaluation for elevated INR History of Present Illness This pt is a 66 yo female with a h/o obesity, dyslipidemia, GERD, depression, PE in 2013 and subsequent DVT in 2016 while on coumadin, asthma, OA, cauda equina with lumbar fusion x 2, who was admitted yesterday for persistent spinal headache that has been present since her revision of lumbar fusion on 01/13/17. Pt reports when she went home, her HAs were worse, pain severe especially with sitting up, better with lying flat. She restarted her coumadin on 01/15 and her last dose was 01/21 (8 mg). INR yesterday was 1.8, today's is down to 1.5. She denies any chest pain, no SOB, no calf pain. Other than her spinal headache , she denies any other problems. SHe was admitted by Ortho Spine for CSF leak and needs surgical correction of dura tear. Medical management consulted for management of her anticoagulation preoperatively. I discussed the case with Dr. Mcdonald today. Plan is for surgery at 1500 if INR < 1.5. Past Medical/Surgical History PMH: Cauda equina compression at L2-L3 and she has nerve root compression at L5-S1. Asthma H/o PE 2013 thought to be provoked by acute illness/PNA Hx of DVT in 2016 while on coumadin manager terminal anticoagulation GERD Osteoarthritis Depression Dyslipidemia PSH: Lumbar spine surgery in 2013 Revision of Lumbar surgery 12/2016 Hysterectomy for menorrhagia Tonsillectomy and adenoidectomy Ventral Hernia repair x 2 Appendectomy Open Cholecystectomy Family History noncontributory Social History Smoking Status: Never Smoker Alcohol Use: none Drug Use: none Marital Status: Housing Status: lives with family Allergies Coded Allergies: Enoxaparin (Verified Allergy, Intermediate, HIVES, 01/22/17) Cephalosporins (Verified Allergy, Mild, RASH HIVES, 01/22/17) Penicillins (Verified Allergy, Mild, RASH HIVES, 01/22/17) Vancomycin (Verified Allergy, Mild, RASH HIVES, RED STRAKING, EYES SWOLLEN , 01/22/17) Hydrochlorothiazide (Unverified Allergy, Unknown, UNKNOWN REACTION, ) PER PCP RECORDS Macrolides and Ketolides (Verified Allergy, Unknown, RASH/HIVES TO MACROLIDES, 01/22/17) Sulfa Antibiotics (Verified Allergy, Unknown, RASH/HIVES TO SULFA DRUGS, 01/22/17) Iodine (Verified Adverse Reaction, Mild, IODINE CONTRAST -- N/V, 01/22/17) Meperidine (Verified Adverse Reaction, Mild, N/V, 01/22/17) Sertraline (Unverified Adverse Reaction, Unknown, UNKNOWN REACTION, ) PER PCP RECORDS Home Medications Reported Home Medications Medications Dose Route/Sig Max Daily Dose Days Date Category Dose Instructions Toradol (Ketorolac Tromethamine) 10 Mg Tab 10 Mg PO TID PRN 01/22/17 Reported Fioricet (Acetaminophen/Butalbital/Caffeine) 1 Ea Tab 1 Tab PO Q6H PRN 01/16/17 Rx Benadryl Allergy (Diphenhydramine Hcl) 25 Mg Tab 25 Mg PO DIRECTED PRN 01/13/17 Reported Ventolin Hfa (Albuterol) 200 Puffs/82523 Mcg Aers 2-4 Puffs INH Q6H PRN 01/06/17 Reported Coumadin (Warfarin Sod) 5 Mg Tab 8 Mg PO UD 01/06/17 Reported PATIENT HAS 5 MG AND 2MG AND 1MG TABLETS. HER DOSES VARY TODAY = 8 MG EVERY DAY AND THEN WILL STOP 01/07 Paxil (Paroxetine Hcl) 30 Mg Tab 30 Mg PO QAM 01/06/17 Reported Prilosec (Omeprazole) 20 Mg Capcr 20 Mg PO QAM 01/06/17 Reported Singulair (Montelukast Sodium) 10 Mg Tab 10 Mg PO QAM 01/06/17 Reported Zocor (Simvastatin) 40 Mg Tab 40 Mg PO QAM 01/06/17 Reported Current Inpatient Medications Current Inpatient Medications Medications (Trade) Dose Ordered Sig/Omar Route Start Time Stop Time Status Last Admin Dose Admin Lactated Ringer's 1,000 ml @ 125 mls/hr Q8H IV 01/22/17 13:15 02/21/17 13:14 01/23/17 05:47 125 MLS/HR Acetaminophen (Tylenol Tab) 650 mg Q6H PRN PO 01/22/17 13:15 02/21/17 13:14 Docusate Sodium (coLACE CAP) 100 mg BID PO 01/22/17 21:00 02/21/17 20:59 01/22/17 21:14 100 MG Promethazine HCl 12.5 mg/Sodium Chloride 50.5 ml @ 202 mls/hr Q6H PRN IV 01/22/17 13:15 02/21/17 13:14 Ondansetron HCl (Zofran Inj) 4 mg Q6H PRN IV 01/22/17 13:15 02/21/17 13:14 Oxycodone/ Acetaminophen (Percocet 5-325mg Tab) Moderate to Severe sally... Q4H PRN PO 01/22/17 13:15 02/05/17 13:14 01/22/17 23:37 1 TAB Dexamethasone Sodium Phosphate 6 mg/Syringe 1.5 ml @ 1 mls/min Q6 IV 01/22/17 18:00 02/21/17 17:59 01/23/17 12:20 1 MLS/MIN Ketorolac Tromethamine (Toradol Inj) 15 mg Q6H PRN IV. 01/22/17 13:30 01/27/17 13:29 01/23/17 07:59 15 MG Gabapentin (Neurontin Cap) 300 mg Q8 PO 01/22/17 22:00 02/21/17 21:59 01/22/17 21:14 300 MG Hydromorphone HCl (Dilaudid Inj) 2 mg Q4 PRN IV 01/22/17 13:30 02/05/17 13:29 Phytonadione 5 mg/ Sodium Chloride 50.5 ml @ 101 mls/hr ONE STAT IV 01/23/17 12:31 01/23/17 13:00 UNV Review of Systems Constitutional: No fever, No chills Eyes: + problem reported (photophobia) ENT: No problem reported Respiratory: No cough, No wheezing, No shortness of breath Cardiovascular: No chest pain, No orthopnea, No edema Abdomen: No pain, No nausea, No vomiting Musculoskeletal: No problem reported Genitourinary - Female: No problem reported Neurologic: + problem reported (headache) Psychiatric: No problem reported Endocrine: No problem reported Hematologic / Lymphatic: + clotting problems Integumentary: No problem reported Allergic / Immunologic: No problem reported Physical Exam Date Time Temp Pulse Resp B/P (MAP) Pulse Ox O2 Delivery O2 Flow Rate FiO2 01/23/17 07:53 Room Air 01/23/17 07:12 36.6 64 18 130/84 (99) 94 Room Air 01/22/17 23:35 Room Air 01/22/17 23:10 37.0 67 16 114/75 (88) 94 Room Air 01/22/17 14:45 36.9 81 20 131/72 97 Room Air 01/22/17 14:45 36.9 81 20 131/72 (91) 97 Room Air 01/22/17 14:45 Room Air 01/22/17 14:14 67 18 122/65 92 Room Air 01/22/17 13:18 68 18 137/75 98 Room Air General Appearance: WD/WN, no apparent distress (but lying in dark room, flat, with eyes covered by blindfold), + obese Head: normocephalic, atraumatic Eyes: normal inspection, PERRL, EOMI, sclerae normal ENT: hearing grossly normal, pharynx normal Neck: supple, no adenopathy, trachea midline Respiratory/Chest: lungs clear, normal breath sounds, no respiratory distress, no accessory muscle use Cardiovascular: regular rate, rhythm, no edema, no gallop, no murmur, normal peripheral pulses Abdomen/GI: normal bowel sounds, non tender, soft, no organomegaly, no pulsatile mass, + pertinent finding (obese, midline paparotomy scar, RUQ incisional scar) Back: + pertinent finding (dressing in lower back c/d/i) Extremities/Musculoskelatal: normal inspection, no calf tenderness, normal capillary refill, no pedal edema, + pertinent finding (negative Natalia's sign bilaterally) Neurologic/Psych: alert, normal mood/affect, oriented x 3 Skin: normal color, warm/dry, no rash Laboratory Results Last 24 Hours Test 01/22/17 13:39 01/23/17 05:07 White Blood Count 12.72 K/uL Red Blood Count 3.86 M/uL Hemoglobin 9.5 g/dL Hematocrit 31.0 % Mean Corpuscular Volume 80.3 fL Mean Corpuscular Hemoglobin 24.6 pg Mean Corpuscular Hemoglobin Concent 30.6 g/dl Platelet Count 408 K/uL Mean Platelet Volume 9.4 fL Neutrophils (%) (Auto) 73.8 % Lymphocytes (%) (Auto) 17.1 % Monocytes (%) (Auto) 7.8 % Eosinophils (%) (Auto) 0.5 % Basophils (%) (Auto) 0.2 % Neutrophils # (Auto) 9.39 K/uL Lymphocytes # (Auto) 2.17 K/uL Monocytes # (Auto) 0.99 K/uL Eosinophils # (Auto) 0.06 K/uL Basophils # (Auto) 0.03 K/uL RDW Standard Deviation 53.5 fL RDW Coefficient of Variation 18.5 % Immature Granulocyte % (Auto) 0.6 % Immature Granulocyte # (Auto) 0.08 K/uL Nucleated RBC Absolute Count (auto) 0.06 K/uL Nucleated Red Blood Cells % 0.5 % Prothrombin Time 20.2 SECONDS 16.0 SECONDS Prothromb Time International Ratio 1.8 1.5 Activated Partial Thromboplast Time 31.5 SECONDS Partial Thromboplastin Ratio 1.2 Sodium Level 140 mmol/L Potassium Level 3.7 mmol/L Chloride Level 106 mmol/L Carbon Dioxide Level 29 mmol/L Anion Gap 5.0 mmol/L Blood Urea Nitrogen 19 mg/dl Creatinine 0.78 mg/dl Est Creatinine Clear Calc Drug Dose 76.2 ml/min Estimated GFR () 91.8 Estimated GFR (Non- 79.2 BUN/Creatinine Ratio 24.8 Random Glucose 102 mg/dl Calcium Level 7.6 mg/dl Hepatitis C Antibody Screen NEG Assessment & Plan This pt is a 66 yo female with a h/o obesity, dyslipidemia, GERD, depression, PE in 2013 and subsequent DVT in 2016 while on coumadin, asthma, OA, cauda equina with lumbar fusion x 2, who was admitted yesterday for persistent spinal headache that has been present since her revision of lumbar fusion on 01/13/17. Pt reports when she went home, her HAs were worse, pain severe especially with sitting up, better with lying flat. She restarted her coumadin on 01/15 and her last dose was 01/21 (8 mg). INR yesterday was 1.8, today's is down to 1.5. She denies any chest pain, no SOB, no calf pain. Other than her spinal headache , she denies any other problems. SHe was admitted by Ortho Spine for CSF leak and needs surgical correction of dura tear. Medical management consulted for management of her anticoagulation preoperatively. I discussed the case with Dr. Mcdonald today. Plan is for surgery at 1500 if INR < 1.5. Spinal HERRERA/CSF leak- operative management as per Dr. Mcdonald -pain control with toradol,dilaudid,oxycodone, also on dexamethasone -continue IVFs -INR management as below prison anticoagulation, h/o PE and subsequent DVT while on coumadin--> last dose coumadin 01/21, INR down to 1.5 this AM from 1.8 yesterday -give Vitamin K 5mg IV x 1 now -check STAT INR at 1500 today--> Anesthesia and Ortho Spine ok with INR<1.5 to proceed with surgery -will need to restart coumadin as soon as possible as per Ortho's recommendations in light of increased risk for VTE post-operatively Pvuekh-[id number]--> microcytic, baseline 12 from preop 1 month ago, now hgb 9.5 likely from recent surgery. -monitor CBC post-op -may need Fe supplementation on discharge -transfuse if Hgb <7.0 Depression-stable -continue home Paxil 30mg daily-may need to bring in from home as is NF here GERD-stable -continue PPI in the AM Dyslipidemia-stable -continue Zocor in the AM Asthma-mild persistent-no acute symptoms -continue daily Singulair in the AM -albuterol HFA prn Proph-TEDs -restart coumadin when safe from Ortho perspective Dispo-Med/Surg floor FULL CODE Additional Copies To Lanie Plasencia PA-C
[2017-01-23] MEDS ORDERED: ALBUTEROL HFA 8 GM INHALER INH PRN (13:15)
[2017-01-23] MEDS ORDERED: FENTANYL CITRATE INJ 50 MCG/1 ML 2 ML VIAL ONE ×3 (14:50→17:28)
[2017-01-23] MEDS ORDERED: DEXAMETHASONE SOD INJ 4 MG/ML VIAL ONE (14:50)
[2017-01-23] MEDS ORDERED: ONDANSETRON INJ 2 MG/ML 2 ML VIAL ONE ×2 (14:50→17:02)
[2017-01-23] MEDS ORDERED: NEOSTIGMINE METHYLSULFATE 5 MG/5 ML SYR ONE (14:51)
[2017-01-23] MEDS ORDERED: LIDOCAINE HCL 2% 2 ML VIAL (20MG/ML) ONE (14:51)
[2017-01-23] MEDS ORDERED: PROPOFOL IV EMULSION 10 MG/ML 20 ML VIAL IV ONE ×9 (14:51→17:35)
[2017-01-23] MEDS ORDERED: GLYCOPYRROLATE INJ 0.2 MG/ML VIAL ONE (14:51)
[2017-01-23 15:53] LABS: INR 1.2 (0.9-1.1); PROTHROMBIN TIME (PATIENT) 13.3 SECONDS (9.0-12.0)
[2017-01-23] MEDS ORDERED: CLINDAMYCIN 600 MG/54 ML D5W IV ONE (15:57)
[2017-01-23] MEDS ORDERED: NURSING VERBAL MED ORDER ONE (16:00)
[2017-01-23] MEDS ORDERED: GELATIN SPONGE SZ 100 ONE ×2 (16:11→17:27)
[2017-01-23] MEDS ORDERED: BACITRACIN 50000 UNIT VIAL ONE (16:11)
[2017-01-23] MEDS ORDERED: THROMBIN FOR SOLN 20000 UNIT KIT ONE (16:11)
[2017-01-23] MEDS ORDERED: EpINEphrine INJ 1MG/ML AMP 1 MG/ML AMP ONE (16:13)
[2017-01-23] MEDS ORDERED: BUPIVACAINE 0.5 % 5 MG/1 ML MPF 30ML VIAL ONE (16:13)
[2017-01-23] MEDS ORDERED: CLINDAMYCIN IV 900 MG in DEXTROSE 5% ADD-VANTAGE 100ML 100 ML IV SCH (16:15)
[2017-01-23] MEDS ORDERED: BUPIVACAINE/EPINEPHRINE 0.25% 1:200,000 30 ML VIAL ONE ×2 (16:24→16:39)
[2017-01-23] MEDS ORDERED: CLINDAMYCIN PHOS 150 MG/ML 2 ML VIAL ONE (17:31)
[2017-01-23] MEDS ORDERED: EpHEDrine SULFATE 50MG/5ML SYR ONE (17:33)
[2017-01-23] MEDS ORDERED: HYDROmorphone INJ 2 MG/ML SYR/VIAL ONE (17:48)
--- NOTE | 2017-01-23 18:28 | [facility] Operative Report ---
Operative Report Operative Date Jan 23, 2017. Pre-Operative Diagnosis Spinal Headaches Post-Operative Diagnosis Spinal Headaches Procedure(s) Performed Repair Dura and Patch of Spinal fluid leak Surgeon Dr. Mcdonald Escrow Clerk Surgeon(s) Krishna Andrew Estimated Blood Loss 100 ml Findings no discreet tear but csf fluid Specimens None per surgeon Complication(s) None Disposition Recovery Room / PACU I attest to the content of the Intraoperative Record and any orders documented therein. Any exceptions are noted below.
[2017-01-23] MEDS ORDERED: ONDANSETRON INJ 2 MG/ML 2 ML VIAL IV PRN (18:30)
[2017-01-23] MEDS ORDERED: MAGNESIUM HYDROXIDE SUSP 30 ML UDC PO PRN (18:30)
[2017-01-23] MEDS ORDERED: LORAZEPAM 1 MG TAB PO PRN (18:30)
[2017-01-23] MEDS ORDERED: HYDROmorphone INJ 1 MG/ML SYR IV PRN (18:30)
[2017-01-23] MEDS ORDERED: ACETAMINOPHEN 325 MG TAB PO PRN (18:30)
[2017-01-23] MEDS ORDERED: PROMETHAZINE HCL INJ 12.5 MG in SODIUM CHLORIDE 0.9% 50ML 50 ML IV PRN (18:30)
[2017-01-23] MEDS ORDERED: METOCLOPRAMIDE HCL INJ 5 MG/ML 2 ML VIAL IV PRN (18:30)
[2017-01-23] MEDS ORDERED: BUTALBITAL/ACETAMIN/CAFFEINE TAB PO PRN (18:30)
[2017-01-23] MEDS ORDERED: OXYCODONE/ACETAMINOPHEN 5-325 TAB PO PRN (18:30)
[2017-01-23] MEDS ORDERED: LORAZEPAM INJ 1 MG in SYRINGE 0 ML IV PRN (18:30)
[2017-01-23] MEDS ORDERED: HYDROmorphone INJ 2 MG/ML SYR/VIAL IV PRN (18:30)
[2017-01-23] MEDS ORDERED: SODIUM CHLORIDE 0.9% 1000ML 1,000 ML IV SCH (19:00)
[2017-01-23] MEDS ORDERED: IV FLUIDS COMPLETED PRN (19:15)
--- NOTE | 2017-01-23 20:00 | Anesthesiology Progress Note ---
Anesthesia Post Op Note Date & Time Jan 23, 2017 at 20:00 Vital Signs Pain Intensity: 0 Vital Signs Past 12 Hours Date Time Temp Pulse Resp B/P (MAP) Pulse Ox O2 Delivery O2 Flow Rate FiO2 01/23/17 19:51 121/80 01/23/17 19:48 76 10 94 01/23/17 19:48 76 10 01/23/17 19:46 135/96 01/23/17 19:43 75 7 01/23/17 19:43 75 7 95 01/23/17 19:41 132/77 01/23/17 19:38 77 7 93 01/23/17 19:38 76 7 01/23/17 19:37 78 10 01/23/17 19:37 77 10 96 01/23/17 19:36 130/67 01/23/17 19:32 77 10 94 01/23/17 19:32 77 10 01/23/17 19:31 150/92 01/23/17 19:27 77 8 01/23/17 19:27 77 8 95 01/23/17 19:26 116/78 01/23/17 19:25 36.1 79 16 150/92 (108) 95 Oxymask 3 01/23/17 19:22 77 9 01/23/17 19:22 77 9 97 01/23/17 19:21 155/75 01/23/17 19:18 81 10 01/23/17 19:18 80 10 97 01/23/17 19:17 79 12 97 01/23/17 19:17 79 12 01/23/17 19:17 79 12 97 01/23/17 19:17 79 12 01/23/17 19:16 148/88 01/23/17 19:16 148/88 01/23/17 19:12 83 12 01/23/17 19:12 83 12 98 01/23/17 19:12 83 12 98 01/23/17 19:12 83 12 01/23/17 19:11 158/72 01/23/17 19:11 158/72 01/23/17 19:07 81 5 98 01/23/17 19:07 81 5 98 01/23/17 19:07 81 5 01/23/17 19:07 81 5 01/23/17 19:06 150/72 01/23/17 19:06 150/72 01/23/17 19:02 85 10 99 01/23/17 19:02 86 10 01/23/17 19:02 85 10 99 01/23/17 19:02 86 10 01/23/17 19:01 154/74 01/23/17 19:01 154/74 01/23/17 18:57 84 10 97 01/23/17 18:57 84 10 97 01/23/17 18:57 84 10 01/23/17 18:57 84 10 01/23/17 18:56 131/79 01/23/17 18:56 131/79 01/23/17 18:53 123/78 01/23/17 18:53 123/78 01/23/17 18:52 88 76 97 01/23/17 18:52 88 76 97 01/23/17 18:52 36.1 91 8 123/78 97 Oxymask 10 01/23/17 18:52 88 76 01/23/17 18:52 88 76 01/23/17 15:26 36.4 58 16 130/77 (94) 96 Room Air 01/23/17 13:05 36.6 57 20 118/76 (90) 96 Room Air Notes Mental Status: alert / awake / arousable, participated in evaluation Pt Amnestic to Procedure: Yes Nausea / Vomiting: adequately controlled Pain: adequately controlled Airway Patency, RR, SpO2: stable & adequate BP & HR: stable & adequate Hydration State: stable & adequate Anesthetic Complications: no major complications apparent
[2017-01-23] MEDS: DEXAMETHASONE INJ 10 MG in SYRINGE 0 ML IV SCH (20:30)
[2017-01-23] MEDS: CLINDAMYCIN IV 600 MG in DEXTROSE 5% 50ML 50 ML IV SCH (23:20)
[2017-01-24 03:43] VITALS: BP 108/69; PULSE 64; TEMP 36.5; O2SAT 99
[2017-01-24] MEDS: DEXAMETHASONE INJ 10 MG in SYRINGE 0 ML IV SCH ×3 (03:48→19:56)
[2017-01-24] MEDS: LACTATED RINGER'S 1000ML 1,000 ML IV SCH (05:15)
[2017-01-24] MEDS: GABAPENTIN 300 MG CAP PO SCH ×3 (05:33→22:00)
[2017-01-24] MEDS ORDERED: NURSING VERBAL MED ORDER ONE (05:45)
[2017-01-24] MEDS ORDERED: BISACODYL 10 MG SUPP PR PRN (06:00)
[2017-01-24] MEDS ORDERED: BISACODYL 5 MG TABEC PO PRN (06:00)
--- NOTE | 2017-01-24 07:39 | OPERATIVE REPORT ---
DATE OF OPERATION: 01/23/2017 PREOPERATIVE DIAGNOSIS: Spinal headache and spinal fluid leak. POSTOPERATIVE DIAGNOSIS: Same. PROCEDURE: Exploration of lumbar spinal wound. Small suture of the dura, patching of the dura with DuraSeal. SURGEON: Dr. Mcdonald. MIMEOGRAPH OPERATOR: Krishna Callahan PA-C. COMPLICATIONS: Zero. BLOOD LOSS: 100. INDICATION: Persistent spinal fluid leak 10 days post surgical. DESCRIPTION OF PROCEDURE: The patient was taken to the operating room after informed consent, placed prone, prepped and draped sterile. A formal timeout was taken. We scrubbed it first and then prepped her out with ChloraPrep. We used her old skin incision, dissecting the soft tissue, putting in a deep self-retaining retractor. We took out the sutures and diego first hand. It was obvious that CSF fluid was accumulating in the subcuticular area. We got down to the dura. I knew exactly where we had operated on 10 days ago because of the technical nature of her surgery. We actually had to remove the posterior aspect 4 mm of interbody cage that was eroding into the dura and into the nerve root. That actually could have been source of the CSF leak, I cannot prove that. We then got down, put in deep self-retaining retractor, and irrigated. I then made more room on the nerve root, completed, and did a more thorough foraminotomy. I think the S1 and S2 nerve roots were visualized. I could not see a discrete tear. The fluid may have been coming from the ventral surface of the dura. I tried to pull it over and I thought I saw a small opening, I could not swear to it. I did put a small suture in that to secure it. It did seem to tamponade off the CSF and help control the CSF flow to a modest degree. We irrigated once again. I then placed DuraSeal over the dura, packed this with Gelfoam. I irrigated some more, I then placed some more DuraSeal and more Gelfoam, more DuraSeal and more Gelfoam. I used a combination of 3 packs of the DuraSeal, approximately 10 mm per pack. I felt that it was secure. We then closed in a watertight fashion with #1 Vicryl suture interrupted, then a running #1 Vicryl suture from top to bottom of the wound, and the entire fascia was closed. 2-0 in the subcuticular layer, 3-0 nylon and 3-0 Prolene on the skin, staple gun on the skin. Sterile dressing was applied. The patient returned to PACU stable. No apparent complications with the patient or with the surgery. Anesthesia count correct at the close. I attest to the content of the Intraoperative Record and any orders documented therein. Any exception s are noted below.
[2017-01-24 07:59] LABS: BASO ABS # 0.01 K/uL (0-0.2); HEMATOCRIT 28.7 % (37-47); IG% 0.4 %; LYMPH ABS # 0.83 K/uL (1.2-3.4); MEAN CELL VOLUME 81.3 fL (80-100); MEAN CORPUSCULAR HEMOGLOBIN 24.6 pg (25-34); MEAN CORPUSCULAR HGB CONC 30.3 g/dl (32-36); MEAN PLATELET VOLUME 9.3 fL (7.4-10.4); MONO % 2.9 %; NEUT % 92.7 %; PLATELET COUNT 385 K/uL (130-400); RED BLOOD COUNT 3.53 M/uL (4.2-5.4); WHITE BLOOD COUNT 20.89 K/uL (4.8-10.8)
[2017-01-24 08:12] LABS: INR 1.1 (0.9-1.1); PROTHROMBIN TIME (PATIENT) 11.4 SECONDS (9.0-12.0)
[2017-01-24 08:15] VITALS: O2SAT 95
[2017-01-24 08:29] LABS: BUN/CREATININE RATIO 18.3 (10-20); CALCIUM 7.5 mg/dl (8.5-10.1); CREATININE 0.75 mg/dl (0.60-1.20); POTASSIUM 4.1 mmol/L (3.5-5.1)
[2017-01-24 08:34] LABS: COMPLETE YES; HYPERSEGMENTED POLYS 1+; HYPOCHROMIA PRESENT
--- NOTE | 2017-01-24 08:35 | Anesthesiology Progress Note ---
Anesthesia Post Op Note Date & Time Jan 24, 2017 at 08:35 Vital Signs Pain Intensity: 0.0 Vital Signs Past 12 Hours Date Time Temp Pulse Resp B/P (MAP) Pulse Ox O2 Delivery O2 Flow Rate FiO2 01/24/17 03:43 36.5 64 16 108/69 (82) 99 Nasal Cannula 3.0 01/23/17 23:15 36.4 70 16 118/73 (88) 100 Nasal Cannula 3.0 01/23/17 22:15 36.4 72 18 119/80 (93) 99 Nasal Cannula 3.0 01/23/17 21:15 36.4 74 18 114/60 (78) 97 Nasal Cannula 3.0 01/23/17 20:59 36.7 83 16 125/80 (95) 98 Nasal Cannula 2.0 Notes Mental Status: alert / awake / arousable, participated in evaluation Pt Amnestic to Procedure: Yes Nausea / Vomiting: adequately controlled Pain: adequately controlled Airway Patency, RR, SpO2: stable & adequate BP & HR: stable & adequate Hydration State: stable & adequate Anesthetic Complications: no major complications apparent
[2017-01-24] MEDS: DOCUSATE SODIUM 100 MG CAP PO SCH ×2 (09:51→20:26)
[2017-01-24] MEDS: CLINDAMYCIN IV 600 MG in DEXTROSE 5% 50ML 50 ML IV SCH ×2 (09:51→16:21)
[2017-01-24] MEDS: PANTOprazole SOD 40 MG TAB PO SCH (09:52)
[2017-01-24] MEDS: MONTELUKAST SOD 10 MG TAB PO SCH (09:52)
[2017-01-24] MEDS: POLYETHYLENE (MIRALAX) 17 GM PACK PO SCH (09:53)
[2017-01-24] MEDS: SIMVASTATIN 40 MG TAB PO SCH (09:53)
[2017-01-24] MEDS: PAROXETINE 30 MG TAB PO SCH (09:53)
--- NOTE | 2017-01-24 12:38 | Hospitalist Progress Note ---
Hospitalist Progress Note Date of Service Jan 24, 2017. (Jeannette Montana ., PA-C) Subjective Pt evaluation today including: conversation w/ patient, conversation w/ family ( at bedside ), physical exam, lab review, review of studies, review of inpatient medication list Voiding: salgado catheter in place (draining clear/yellow urine ) Patient denies any complaints. Lying flat in bed. On bedrest as per ortho. Lives at home w/ . Per patient/, possible d/c to home on Friday. Eating and drinking OK. Denies any pain. Denies headache. Patient denies any fever, chills, sweats, lightheadedness, dizziness, vision changes, CP, palpitations, edema, SOB, wheezing, cough, abdominal pain, nausea, vomiting, diarrhea, urinary symptoms, melena, numbness/tingling, weakness, muscle/joint pain, anxiety/depression, active bleeding, or new skin discoloration/changes. (Jeannette Montana ., JONNA-C) Medications Current Inpatient Medications Medications (Trade) Dose Ordered Sig/Omar Route Start Time Stop Time Status Last Admin Dose Admin Docusate Sodium (coLACE CAP) 100 mg BID PO 01/22/17 21:00 02/21/17 20:59 01/24/17 09:51 100 MG Ketorolac Tromethamine (Toradol Inj) 15 mg Q6H PRN IV. 01/22/17 13:30 01/27/17 13:29 01/23/17 07:59 15 MG Gabapentin (Neurontin Cap) 300 mg Q8 PO 01/22/17 22:00 02/21/17 21:59 01/24/17 05:33 300 MG Albuterol (Ventolin Hfa Inhaler) 2 puffs Q6H PRN INH 01/23/17 13:15 02/22/17 13:14 Montelukast Sodium (Singulair Tab) 10 mg QAM PO 01/24/17 09:00 02/23/17 08:59 01/24/17 09:52 10 MG Simvastatin (Zocor Tab) 40 mg QAM PO 01/24/17 09:00 02/23/17 08:59 01/24/17 09:53 40 MG Pantoprazole Sodium (Protonix Tab) 40 mg QAM PO 01/24/17 09:00 02/23/17 08:59 01/24/17 09:52 40 MG Paroxetine HCl (pAXil) 30 mg QAM PO 01/24/17 09:00 02/23/17 08:59 01/24/17 09:53 30 MG Acetaminophen (Tylenol Tab) 650 mg Q6H PRN PO 01/23/17 18:30 02/22/17 18:29 Hydromorphone HCl (Dilaudid Inj) 1 mg Q3H PRN IV 01/23/17 18:30 02/06/17 18:29 Hydromorphone HCl (Dilaudid Inj) 1.5 mg Q3H PRN IV 01/23/17 18:30 02/06/17 18:29 Promethazine HCl 12.5 mg/Sodium Chloride 50.5 ml @ 202 mls/hr Q6H PRN IV 01/23/17 18:30 02/22/17 18:29 Ondansetron HCl (Zofran Inj) 4 mg Q6H PRN IV 01/23/17 18:30 02/22/17 18:29 Metoclopramide HCl (Reglan Inj) 10 mg Q6H PRN IV 01/23/17 18:30 02/22/17 18:29 Lorazepam (Ativan Tab) 1 mg Q6H PRN PO 01/23/17 18:30 02/22/17 18:29 Lorazepam 1 mg/ Syringe 0.5 ml @ 1 mls/min Q6H PRN IV 01/23/17 18:30 02/22/17 18:29 Polyethylene (Miralax Powder Packet) 17 gm DAILY PO 01/24/17 09:00 02/23/17 08:59 01/24/17 09:53 17 GM Bisacodyl (Dulcolax Tab) 5 mg DAILY PRN PO 01/24/17 06:00 02/23/17 05:59 Bisacodyl (Dulcolax Supp) 10 mg DAILY PRN W[place] 01/24/17 06:00 02/23/17 05:59 Magnesium Hydroxide (Milk Of Magnesia Susp) 30 ml DAILY PRN PO 01/23/17 18:30 02/22/17 18:29 Diphenhydramine HCl (Benadryl Cap) 25 mg Q6H PRN PO 01/23/17 18:30 02/22/17 18:29 Oxycodone/ Acetaminophen (Percocet 5-325mg Tab) 1 tab Q4H PRN PO 01/23/17 18:30 02/06/17 18:29 Oxycodone/ Acetaminophen (Percocet 5-325mg Tab) 2 tab Q4H PRN PO 01/23/17 18:30 02/06/17 18:29 Clindamycin Phosphate 600 mg/ Dextrose 54 ml @ 100 mls/hr Q8H IV 01/24/17 00:00 01/25/17 08:00 01/24/17 09:51 100 MLS/HR Dexamethasone Sodium Phosphate 10 mg/Syringe 2.5 ml @ 1 mls/min Q8H IV 01/23/17 20:00 01/25/17 04:03 01/24/17 03:48 1 MLS/MIN Acetaminophen/ Butalbital/ Caffeine (Fioricet Tab) 1 tab Q6H PRN PO 01/23/17 18:30 02/22/17 18:29 Diphenhydramine HCl (Benadryl Cap) 25 mg DIRECTED PRN PO 01/23/17 18:30 02/22/17 18:29 Miscellaneous (Iv Fluids Completed) 1 ea PRN PRN N/A 01/23/17 19:15 01/23/18 19:14 (Jeannette Montana, PA-C) Objective Vital Signs Date Time Temp Pulse Resp B/P (MAP) Pulse Ox O2 Delivery O2 Flow Rate FiO2 01/24/17 03:43 36.5 64 16 108/69 (82) 99 Nasal Cannula 3.0 01/23/17 23:15 36.4 70 16 118/73 (88) 100 Nasal Cannula 3.0 01/23/17 22:15 36.4 72 18 119/80 (93) 99 Nasal Cannula 3.0 01/23/17 21:15 36.4 74 18 114/60 (78) 97 Nasal Cannula 3.0 01/23/17 20:59 36.7 83 16 125/80 (95) 98 Nasal Cannula 2.0 01/23/17 20:15 96 Oxymask 4.0 01/23/17 20:15 36.6 57 16 124/82 (96) 96 Oxymask 4.0 01/23/17 20:15 96 Oxymask 3.0 01/23/17 19:51 121/80 01/23/17 19:48 76 10 94 01/23/17 19:48 76 10 01/23/17 19:46 135/96 01/23/17 19:43 75 7 01/23/17 19:43 75 7 95 01/23/17 19:41 132/77 01/23/17 19:38 77 7 93 01/23/17 19:38 76 7 01/23/17 19:37 78 10 01/23/17 19:37 77 10 96 01/23/17 19:36 130/67 01/23/17 19:32 77 10 94 01/23/17 19:32 77 10 01/23/17 19:31 150/92 01/23/17 19:27 77 8 01/23/17 19:27 77 8 95 01/23/17 19:26 116/78 01/23/17 19:25 36.1 79 16 150/92 (108) 95 Oxymask 3 01/23/17 19:22 77 9 01/23/17 19:22 77 9 97 01/23/17 19:21 155/75 01/23/17 19:18 81 10 01/23/17 19:18 80 10 97 01/23/17 19:17 79 12 97 01/23/17 19:17 79 12 01/23/17 19:17 79 12 97 01/23/17 19:17 79 12 01/23/17 19:16 148/88 01/23/17 19:16 148/88 01/23/17 19:12 83 12 01/23/17 19:12 83 12 98 01/23/17 19:12 83 12 98 01/23/17 19:12 83 12 01/23/17 19:11 158/72 01/23/17 19:11 158/72 01/23/17 19:07 81 5 98 01/23/17 19:07 81 5 98 01/23/17 19:07 81 5 01/23/17 19:07 81 5 01/23/17 19:06 150/72 01/23/17 19:06 150/72 01/23/17 19:02 85 10 99 01/23/17 19:02 86 10 01/23/17 19:02 85 10 99 01/23/17 19:02 86 10 01/23/17 19:01 154/74 01/23/17 19:01 154/74 01/23/17 18:57 84 10 97 01/23/17 18:57 84 10 97 01/23/17 18:57 84 10 01/23/17 18:57 84 10 01/23/17 18:56 131/79 01/23/17 18:56 131/79 01/23/17 18:53 123/78 01/23/17 18:53 123/78 01/23/17 18:52 88 76 97 01/23/17 18:52 88 76 97 01/23/17 18:52 36.1 91 8 123/78 97 Oxymask 10 01/23/17 18:52 88 76 01/23/17 18:52 88 76 01/23/17 15:26 36.4 58 16 130/77 (94) 96 Room Air 01/23/17 13:05 36.6 57 20 118/76 (90) 96 Room Air (Jeannette Montana ., PA-C) Physical Exam General Appearance: no apparent distress, + obese, + pertinent finding (O2 NC ) Eyes: PERRL ENT: hearing grossly normal Neck: supple Respiratory/Chest: lungs clear, no respiratory distress, no accessory muscle use Cardiovascular: regular rate, rhythm Abdomen: normal bowel sounds, non tender, soft Extremities: no pedal edema, no calf tenderness Neurologic/Psychiatric: alert, normal mood/affect, oriented x 3 Skin: normal color, warm/dry, no rash (Jeannette Montana ., PA-C) Laboratory Results Last 24 Hours Test 01/23/17 15:35 01/24/17 07:42 Prothrombin Time 13.3 SECONDS 11.4 SECONDS Prothromb Time International Ratio 1.2 1.1 White Blood Count 20.89 K/uL Red Blood Count 3.53 M/uL Hemoglobin 8.7 g/dL Hematocrit 28.7 % Mean Corpuscular Volume 81.3 fL Mean Corpuscular Hemoglobin 24.6 pg Mean Corpuscular Hemoglobin Concent 30.3 g/dl Platelet Count 385 K/uL Mean Platelet Volume 9.3 fL Neutrophils (%) (Auto) 92.7 % Lymphocytes (%) (Auto) 4.0 % Monocytes (%) (Auto) 2.9 % Eosinophils (%) (Auto) 0.0 % Basophils (%) (Auto) 0.0 % Neutrophils # (Auto) 19.36 K/uL Lymphocytes # (Auto) 0.83 K/uL Monocytes # (Auto) 0.60 K/uL Eosinophils # (Auto) 0.00 K/uL Basophils # (Auto) 0.01 K/uL RDW Standard Deviation 54.0 fL RDW Coefficient of Variation 18.5 % Immature Granulocyte % (Auto) 0.4 % Immature Granulocyte # (Auto) 0.09 K/uL Nucleated RBC Absolute Count (auto) 0.04 K/uL Nucleated Red Blood Cells % 0.2 % Hypersegmented Polys 1+ Hypochromasia PRESENT Sodium Level 142 mmol/L Potassium Level 4.1 mmol/L Chloride Level 106 mmol/L Carbon Dioxide Level 28 mmol/L Anion Gap 7.0 mmol/L Blood Urea Nitrogen 14 mg/dl Creatinine 0.75 mg/dl Est Creatinine Clear Calc Drug Dose 79.3 ml/min Estimated GFR () 96.3 Estimated GFR (Non- 83.1 BUN/Creatinine Ratio 18.3 Random Glucose 147 mg/dl Calcium Level 7.5 mg/dl (Jeannette Montana, RYANC) Assessment and Plan This pt is a 66 yo female with a h/o obesity, dyslipidemia, GERD, depression, PE in 2013 and subsequent DVT in 2015 while on coumadin, asthma, OA, cauda equina with lumbar fusion x 2, who was admitted yesterday for persistent spinal headache that has been present since her revision of lumbar fusion on 01/13/17. Pt reports when she went home, her HAs were worse, pain severe especially with sitting up, better with lying flat. Spinal HERRERA/CSF leak s/p exploration of lumbar spinal wound, small suture of the dura, patching of the dura by Dr. Mcdonald on 01/23: - Pain management, surgical management, PT/OT, and DVT prophylaxis as per primary team - Postop CBC and PRP- STABLE -- Leukocytosis, likely secondary to postop response/IV steroids- no s/s of infection- continue to follow - Encouraged incentive spirometer h/o PE and subsequent DVT while on Coumadin: - Coumadin held and treated w/ Vitamin K 5mg IV x1 prior to procedure - Resume Coumadin THELMA as per ortho recommendations Acute anemia, likely secondary to recent surgical procedures- baseline hgb 12: Follow H&H, transfuse hgb <7.0 Depression: Continue Paxil 30mg daily Dyslipidemia: Continue Zocor Asthma-mild persistent- no acute symptoms: Continue daily Singulair and albuterol HFA PRN GI prophylaxis: Protonix daily- resume Prilosec at discharge DVT prophylaxis: As per surgery Code Status: LEVEL I, FULL Dispo: As per primary team (Jeannette Montana ., PA-C) PA Physician Supervision Note: I interviewed and examined the patient. Discussed with Jeannette Montana PAC and agree with findings and plan as documented in the note. Any exceptions or clarifications are listed here: None Patient admitted with a spinal leak Dr. Sanchez applied a blood patch patient is doing better her headache improved the preceptor plan to keep the patient observed over the weekend Her vitals are stable heart is regular lungs are clear With her history of thrombophilia even on anticoagulation her Coumadin was held. Procedure this will be restarted likely 24 hours after procedure based upon orthopedic preference will continue to follow for medical events during the stay Documented By: Piotr Ken (Piotr Ken M.D.)
[2017-01-24 15:19] VITALS: BP 108/68; PULSE 71; TEMP 36.7; O2SAT 91
[2017-01-24 20:02] VITALS: BP 100/66; PULSE 71; TEMP 36.7; O2SAT 92
[2017-01-24] MEDS: KETOROLAC TROMETHAMINE 15 MG/ML VIAL IV. PRN (20:26)
[2017-01-24 23:10] VITALS: BP 111/69; PULSE 81; TEMP 36.7; O2SAT 96
[2017-01-25] MEDS: CLINDAMYCIN IV 600 MG in DEXTROSE 5% 50ML 50 ML IV SCH ×2 (00:50→10:27)
[2017-01-25] MEDS: DEXAMETHASONE INJ 10 MG in SYRINGE 0 ML IV SCH (03:51)
[2017-01-25] MEDS: GABAPENTIN 300 MG CAP PO SCH ×3 (06:01→21:10)
[2017-01-25 07:09] VITALS: BP 136/73; PULSE 67; TEMP 37.1; O2SAT 93
[2017-01-25 07:28] LABS: HEMATOCRIT 27.4 % (37-47); MEAN CELL VOLUME 81.1 fL (80-100); MEAN CORPUSCULAR HEMOGLOBIN 24.6 pg (25-34); MEAN CORPUSCULAR HGB CONC 30.3 g/dl (32-36); MEAN PLATELET VOLUME 9.1 fL (7.4-10.4); PLATELET COUNT 391 K/uL (130-400); RED BLOOD COUNT 3.38 M/uL (4.2-5.4); WHITE BLOOD COUNT 14.99 K/uL (4.8-10.8)
[2017-01-25 07:35] LABS: PROTHROMBIN TIME (PATIENT) 10.9 SECONDS (9.0-12.0)
--- NOTE | 2017-01-25 10:10 | ORTHOPEDICS PROGRESS NOTE ---
DATE: 01/25/2017 SUBJECTIVE: She is alert, oriented without spinal headache, lying supine. I brought her head up to about 45 degrees. No headache. OBJECTIVE: Alert and oriented. Vital signs stable, temperature 37.1. ASSESSMENT: Status post spinal headache with patching of the spinal canal and repair of the dura. DISPOSITION: We will slowly get her sitting up the side of bed to a commode and try to accomplish that today. Tomorrow, we will change her dressing, hopefully home tomorrow, late evening or Friday morning if all are stable, condition remains guarded.
[2017-01-25] MEDS: DOCUSATE SODIUM 100 MG CAP PO SCH ×2 (10:12→21:10)
[2017-01-25] MEDS: POLYETHYLENE (MIRALAX) 17 GM PACK PO SCH (10:12)
[2017-01-25] MEDS: PAROXETINE 30 MG TAB PO SCH (10:23)
[2017-01-25] MEDS: MONTELUKAST SOD 10 MG TAB PO SCH (10:24)
[2017-01-25] MEDS: SIMVASTATIN 40 MG TAB PO SCH (10:24)
[2017-01-25] MEDS: PANTOprazole SOD 40 MG TAB PO SCH (10:24)
--- NOTE | 2017-01-25 14:58 | Progress Note ---
Subjective Date of Service: Jan 25, 2017. Subjective pt has no new issues her headache is markedly improved orthopedics is considering keeping her 412 more days physical therapy is evaluating her today Problem List Medical Problems: (1) CSF leak Status: Acute (2) Headache Status: Acute Review of Systems Constitutional: No fever, No chills Respiratory: No cough, No sputum, No shortness of breath Cardiac: No chest pain, No edema Abdomen: No pain, No nausea, No vomiting Objective Vital Signs Date Time Temp Pulse Resp B/P (MAP) Pulse Ox O2 Delivery O2 Flow Rate FiO2 01/25/17 07:50 Nasal Cannula 01/25/17 07:09 37.1 67 18 136/73 (94) 93 Room Air 01/25/17 00:25 Room Air 01/24/17 23:10 36.7 81 16 111/69 (83) 96 Room Air 01/24/17 20:02 36.7 71 16 100/66 (77) 92 Room Air 01/24/17 19:00 Room Air 01/24/17 17:16 Room Air 01/24/17 15:19 36.7 71 16 108/68 (81) 91 Room Air Physical Exam General Appearance: WD/WN, + mild distress Eyes: PERRL, EOMI Neurologic/Psychiatric: alert, oriented x 3 Skin: normal color, warm/dry, no rash Laboratory Results Last 24 Hours Test 01/25/17 06:59 White Blood Count 14.99 K/uL Red Blood Count 3.38 M/uL Hemoglobin 8.3 g/dL Hematocrit 27.4 % Mean Corpuscular Volume 81.1 fL Mean Corpuscular Hemoglobin 24.6 pg Mean Corpuscular Hemoglobin Concent 30.3 g/dl RDW Standard Deviation 55.1 fL RDW Coefficient of Variation 18.7 % Platelet Count 391 K/uL Mean Platelet Volume 9.1 fL Prothrombin Time 10.9 SECONDS Prothromb Time International Ratio 1.0 Assessment and Plan 66 yo female with persistent spinal headache that has been present since her revision of lumbar fusion on 01/13/17. She had a patch of her dura applied under the direction of Dr. Olguin and is greatly improved She has a past medical h/o obesity, dyslipidemia, GERD, depression, PE in 2014 and subsequent DVT in 2016 while on coumadin, asthma, OA, cauda equina with lumbar fusion x 2 Spinal HERRERA/CSF leak s/p exploration of lumbar spinal wound, small suture of the dura, patching of the dura by Dr. Mcdonald on 01/23: h/o PE and subsequent DVT while on Coumadin: - Coumadin held and treated w/ Vitamin K 5mg IV x1 prior to procedure - Resume Coumadin as per ortho recommendations may consider restarting this at time of discharge Acute blood loss anemia, likely secondary to recent surgical procedures- baseline hgb 12: Follow H&H, transfuse hgb <7.0 Depression: Stable on Paxil 30mg daily Dyslipidemia: On home Zocor Asthma-mild persistent-has been controlled on Singulair and albuterol HFA PRN GI prophylaxis: Protonix daily- resume Prilosec at discharge Code Status: LEVEL I, FULL
[2017-01-25 15:13] VITALS: PULSE 78; TEMP 37; O2SAT 93
[2017-01-25 15:30] VITALS: BP 116/74
[2017-01-25] MEDS: OXYCODONE/ACETAMINOPHEN 5-325 TAB PO PRN (21:11)
[2017-01-25 23:21] VITALS: BP 137/81; PULSE 66; TEMP 36.8; O2SAT 95
[2017-01-26] MEDS: GABAPENTIN 300 MG CAP PO SCH ×3 (06:17→20:50)
[2017-01-26 07:01] LABS: HEMATOCRIT 26.6 % (37-47); MEAN CELL VOLUME 80.9 fL (80-100); MEAN CORPUSCULAR HEMOGLOBIN 24.3 pg (25-34); MEAN CORPUSCULAR HGB CONC 30.1 g/dl (32-36); MEAN PLATELET VOLUME 9.1 fL (7.4-10.4); PLATELET COUNT 360 K/uL (130-400); RED BLOOD COUNT 3.29 M/uL (4.2-5.4); WHITE BLOOD COUNT 10.06 K/uL (4.8-10.8)
[2017-01-26 07:10] LABS: PROTHROMBIN TIME (PATIENT) 10.9 SECONDS (9.0-12.0)
[2017-01-26 07:20] VITALS: BP 122/69; PULSE 65; TEMP 36.9; O2SAT 94
--- NOTE | 2017-01-26 09:47 | ORTHOPEDICS PROGRESS NOTE ---
DATE: 01/26/2017 SUBJECTIVE: Radhika is improving and stabilizing. She did make it to the bathroom yesterday several times. She had 1 incident of spinal headache resolved with 1 Percocet. Temperature 36.9, blood pressure is stable. Wound clean and dry. IMPRESSION: Repair of spinal fluid leak and patching the spinal fluid leak status post major reconstructive spinal surgery. Improved, stable in the short run. DISPOSITION: Dressing changed today. Out of bed to chair. Optimistically home tomorrow.
[2017-01-26] MEDS: POLYETHYLENE (MIRALAX) 17 GM PACK PO SCH (10:20)
[2017-01-26] MEDS: DOCUSATE SODIUM 100 MG CAP PO SCH ×2 (10:21→20:50)
[2017-01-26] MEDS: SIMVASTATIN 40 MG TAB PO SCH (10:22)
[2017-01-26] MEDS: MONTELUKAST SOD 10 MG TAB PO SCH (10:22)
[2017-01-26] MEDS: PAROXETINE 30 MG TAB PO SCH (10:22)
[2017-01-26] MEDS: PANTOprazole SOD 40 MG TAB PO SCH (10:22)
--- NOTE | 2017-01-26 12:52 | Progress Note ---
Subjective Date of Service: Jan 26, 2017. Subjective pt is doing well anticipated discharge in next few days, has minor headache Problem List Medical Problems: (1) CSF leak Status: Acute (2) Headache Status: Acute Review of Systems Constitutional: + weakness, + fatigue, No fever, No chills Respiratory: No cough, No sputum Cardiac: No chest pain, No edema Abdomen: No pain, No nausea, No vomiting Objective Vital Signs Date Time Temp Pulse Resp B/P (MAP) Pulse Ox O2 Delivery O2 Flow Rate FiO2 01/26/17 08:00 Room Air 01/26/17 07:20 36.9 65 18 122/69 (86) 94 Room Air 01/25/17 23:35 Room Air 01/25/17 23:21 36.8 66 16 137/81 (99) 95 Room Air 01/25/17 15:30 116/74 (88) 01/25/17 15:30 Room Air 01/25/17 15:13 37.0 78 18 93 Room Air Physical Exam General Appearance: WD/WN, + mild distress Eyes: PERRL, EOMI Neurologic/Psychiatric: alert, oriented x 3 Skin: normal color, warm/dry Laboratory Results Last 24 Hours Test 01/26/17 06:37 White Blood Count 10.06 K/uL Red Blood Count 3.29 M/uL Hemoglobin 8.0 g/dL Hematocrit 26.6 % Mean Corpuscular Volume 80.9 fL Mean Corpuscular Hemoglobin 24.3 pg Mean Corpuscular Hemoglobin Concent 30.1 g/dl RDW Standard Deviation 54.6 fL RDW Coefficient of Variation 18.5 % Platelet Count 360 K/uL Mean Platelet Volume 9.1 fL Nucleated RBC Absolute Count (auto) 0.07 K/uL Nucleated Red Blood Cells % 0.7 % Prothrombin Time 10.9 SECONDS Prothromb Time International Ratio 1.0 Assessment and Plan 66 yo female with persistent spinal headache that has been present since her revision of lumbar fusion on 01/13/17. She had a patch of her dura applied under the direction of Dr. Olguin and is greatly improved She has a past medical h/o obesity, dyslipidemia, GERD, depression, PE in 2014 and subsequent DVT in 2016 while on coumadin, asthma, OA, cauda equina with lumbar fusion x 2 Spinal HERRERA/CSF leak s/p exploration of lumbar spinal wound, small suture of the dura, patching of the dura by Dr. Mcdonald on 01/23:she has progressed with clinical improvement h/o PE and subsequent DVT while on Coumadin: - Coumadin held and treated w/ Vitamin K 5mg IV x1 prior to procedure - Resume Coumadin as per ortho recommendations may consider restarting this at time of discharge Acute blood loss anemia, likely secondary to recent surgical procedures- baseline hgb 12: Follow H&H, transfuse hgb <7.0 Depression: Stable on Paxil 30mg daily Dyslipidemia: On home Zocor Asthma-mild persistent-has been controlled on Singulair and albuterol HFA PRN GI prophylaxis: Protonix daily- resume Prilosec at discharge Code Status: LEVEL I, FULL
[2017-01-26] MEDS: OXYCODONE/ACETAMINOPHEN 5-325 TAB PO PRN (14:44)
[2017-01-26 15:15] VITALS: BP 110/76; PULSE 71; TEMP 37.2; O2SAT 94
[2017-01-26 23:06] VITALS: BP 95/50; PULSE 75; TEMP 37.2; O2SAT 98
[2017-01-27] MEDS: GABAPENTIN 300 MG CAP PO SCH (05:37)
[2017-01-27 06:18] LABS: HEMATOCRIT 27.4 % (37-47); MEAN CELL VOLUME 80.6 fL (80-100); MEAN CORPUSCULAR HEMOGLOBIN 24.1 pg (25-34); MEAN CORPUSCULAR HGB CONC 29.9 g/dl (32-36); MEAN PLATELET VOLUME 9.3 fL (7.4-10.4); PLATELET COUNT 386 K/uL (130-400); WHITE BLOOD COUNT 10.76 K/uL (4.8-10.8)
[2017-01-27 06:28] LABS: PROTHROMBIN TIME (PATIENT) 10.7 SECONDS (9.0-12.0)
[2017-01-27 07:17] VITALS: BP 123/78; PULSE 76; TEMP 37.6; O2SAT 97
[2017-01-27] MEDS: POLYETHYLENE (MIRALAX) 17 GM PACK PO SCH (08:38)
[2017-01-27] MEDS: PANTOprazole SOD 40 MG TAB PO SCH (08:39)
[2017-01-27] MEDS: MONTELUKAST SOD 10 MG TAB PO SCH (08:39)
[2017-01-27] MEDS: SIMVASTATIN 40 MG TAB PO SCH (08:39)
[2017-01-27] MEDS: DOCUSATE SODIUM 100 MG CAP PO SCH (08:39)
[2017-01-27] MEDS: PAROXETINE 30 MG TAB PO SCH (08:40)
--- NOTE | 2017-01-27 09:48 | Discharge Instructions ---
Discharge Instructions Date of Service Jan 27, 2017. Admission Reason for Admission: Spinal Headache Discharge Discharge Diagnosis / Problem: same Discharge Goals Goal(s): Improve function Activity Recommendations Activity Limitations: as noted below Lifting Limitations: gradually increase as tolerated, until after follow-up appointment Exercise/Sports Limitations: until after follow-up appointment May Resume Sexual Activity: after follow-up appointment home , rest, recvover . Current Hospital Diet Patient's current hospital diet: Regular Diet Discharge Diet Recommended Diet: Regular Diet Procedures Procedures Performed: Repair Dura and Patch of Spinal fluid leak Pending Studies Studies pending at discharge: no Laboratory Results Lipid Panel Test 01/06/17 09:00 Range/Units Triglycerides Level 226 H 0-150 mg/dl Cholesterol Level 194 0-200 mg/dl HDL Cholesterol 45 mg/dl LDL Cholesterol Direct 126 mg/dl Cholesterol/HDL Ratio 4.3 LDL Cholesterol, Calculated mg/dl Medical Emergencies . Who to Call and When: Medical Emergencies: If at any time you feel your situation is an emergency, please call 911 immediately. . Non-Emergent Contact Non-Emergency issues call your: Surgeon Call Non-Emergent contact if: your pain is concerning you . "Provider Documentation" section prepared by Ruddy Mcdonald. . VTE Core Measure Inpt VTE Proph given/why not?: Treatment not indicated
[2017-01-27 10:55] VITALS: BP 123/78; PULSE 76; TEMP 37.6; O2SAT 97
--- NOTE | 2017-02-05 11:45 | DISCHARGE SUMMARY ---
Radhika is a delightful patient. She was admitted urgently with a spinal fluid leak. We really could not find it. We did patch it with Gelfoam and DuraSeal. She seemed to do well. She progressed. We kept her flat in bed or basically bed rest for 48 hours. We moved her from bed rest to head of bed elevated out to a chair. We had her ambulatory and she was stable. Mentally alert, oriented. Pain controlled. Discharged home on the in improved stable condition. Instructions, precautions provided. Follow up with us in the office in 10 days.
== END 2017-01-27 11:35 | disposition home health service (06) | DRG 26 ==
LOC: C.EDB 12:17 → INTOOBSV 13:20 → OBSVTOIN 13:20 → C.MSN 13:20 → ENRESERV 13:53
PROVIDERS: ADMIT Orthopaedic Surgery Orthopaedic Surgery of the Spine; ATTEND Orthopaedic Surgery Orthopaedic Surgery of the Spine
PROC: 00QT0ZZ Repair Spinal Meninges, Open Approach (ICD-10-PCS; principal; 2017-01-23 07:00)
PROC: 00U20JZ Supplement Dura Mater with Synthetic Substitute, Open Approach (ICD-10-PCS; principal; 2017-01-23 07:00)
DX: G97.82 Other postprocedural complications and disorders of nervous system (principal); G96.0 Cerebrospinal fluid leak; D62 Acute posthemorrhagic anemia; Y79.2 Prosthetic and other implants, materials and accessory orthopedic devices associated with adverse incidents; Y83.8 Other surgical procedures as the cause of abnormal reaction of the patient, or of later complication, without mention of misadventure at the time of the procedure; Y92.234 Operating room of hospital as the place of occurrence of the external cause; D72.829 Elevated white blood cell count, unspecified; T38.0X5A Adverse effect of glucocorticoids and synthetic analogues, initial encounter; J45.30 Mild persistent asthma, uncomplicated; K21.9 Gastro-esophageal reflux disease without esophagitis; E78.5 Hyperlipidemia, unspecified; D50.9 Iron deficiency anemia, unspecified; M19.90 Unspecified osteoarthritis, unspecified site; G47.33 Obstructive sleep apnea (adult) (pediatric); F32.9 Major depressive disorder, single episode, unspecified; E66.9 Obesity, unspecified; Z68.33 Body mass index [BMI] 33.0-33.9, adult; Z86.718 Personal history of other venous thrombosis and embolism; Z86.711 Personal history of pulmonary embolism; Z98.1 Arthrodesis status; Z99.89 Dependence on other enabling machines and devices; Z79.01 Long term (current) use of anticoagulants; Z79.891 Long term (current) use of opiate analgesic; Z79.899 Other long term (current) drug therapy

== ENCOUNTER 2017-07-10 06:51 | Day surgery (SDC) | payer BC ==
--- NOTE | 2017-07-04 12:17 | DIAGNOSTIC IMAGING REPORT ---
CHEST 2 VIEWS ROUTINE HISTORY: Preop. COMPARISON: Chest 01/06/2017. FINDINGS: The lungs are clear. Cardiac silhouette is mildly enlarged. Lumbar spinal fusion hardware is partially visualized. No pleural effusions. No pneumothorax. IMPRESSION: Stable mild cardiomegaly. Electronically signed by: Kyle Gutierrez M.D. 07/04/2017 12:16 PM Dictated Date/Time: 07/04/2017 12:13 PM
[2017-07-04 12:36] LABS: HEMATOCRIT 29.4 % (37-47); HEMOGLOBIN 8.2 g/dL (12.0-16.0); MEAN CELL VOLUME 66.4 fL (80-100); MEAN CORPUSCULAR HEMOGLOBIN 18.5 pg (25-34); MEAN CORPUSCULAR HGB CONC 27.9 g/dl (32-36); MEAN PLATELET VOLUME 9.4 fL (7.4-10.4); PLATELET COUNT 401 K/uL (130-400); PTT PATIENT 34.7 SECONDS (21.0-31.0); RED CELL DISTRIBUTION WIDTH CV 19.1 % (11.5-14.5); RED CELL DISTRIBUTION WIDTH SD 46.2 fL (36.4-46.3); WHITE BLOOD COUNT 7.65 K/uL (4.8-10.8)
[2017-07-04 12:45] LABS: BASO % 0.8 %; BASO ABS # 0.06 K/uL (0-0.2); EOS % 3.1 %; EOS ABS # 0.24 K/uL (0-0.5); IG# 0.02 K/uL (0.00-0.02); LYMPH % 28.9 %; LYMPH ABS # 2.21 K/uL (1.2-3.4); MONO % 6.4 %; MONO ABS # 0.49 K/uL (0.11-0.59); NEUT % 60.5 %; NEUT ABS # 4.63 K/uL (1.4-6.5)
[2017-07-04 12:46] LABS: BLOOD UREA NITROGEN 20 mg/dl (7-18); CALCIUM 8.6 mg/dl (8.5-10.1); CARBON DIOXIDE 31 mmol/L (21-32); CREATININE 0.95 mg/dl (0.60-1.20); GLUCOSE 112 mg/dl (70-99); POTASSIUM 3.8 mmol/L (3.5-5.1); SODIUM 140 mmol/L (136-145)
[2017-07-04 15:54] VITALS: Ht 152.4 cm; Wt 93.4 kg
--- NOTE | 2017-07-09 17:58 | HISTORY & PHYSICAL EXAMINATION ---
DATE OF ADMISSION: 07/10/2017 CHIEF COMPLAINT: Back pain. HISTORY OF PRESENT ILLNESS: Radhika is a delightful patient. I have known her for approximately 1.5 year. She had fairly elaborate and elegant spinal surgery. She had wound problems postoperatively. She has been on a Hemovac. It is almost completely closed down. She still has some scar tissue formation around the wound edges and it will not quite clear up for her. I have offered her a wound revision and closure of this wound to get this behind her and healed up. She was well informed and asked intelligent questions and would like to proceed. PAST MEDICAL HISTORY: Positive for DVT, spinal stenosis. MEDICATIONS: Prilosec, Paxil, Zocor, Coumadin. SOCIAL HISTORY: Nonsmoker, no ETOH user. PAST SURGICAL HISTORY: Includes lumbar spine surgery x2. REVIEW OF SYSTEMS: She denies any blurred vision, double vision, tinnitus or vertigo. No chest pain, palpitation, shortness of breath. No nausea, vomiting, urgency, frequency, dysuria. She has back pain only without radicular component. PHYSICAL EXAMINATION: VITAL SIGNS: 130/80 blood pressure, pulse of 88, respirations 18. HEENT: Pupils react to light and accommodation. Ear, nose and throat clear. CARDIAC: Normal S1, S2. LUNGS: Clear. NEUROLOGIC: 5/5 motor strength to all extremities. Sensory and vascularity normal. Her wound shows a very small area of wound, nonhealing, roughly around the L2-L3 region. The wound is actually approximately 2 cm in length and approximately 1 cm in depth. IMPRESSION: A delightful patient with wound complication postoperative. DISPOSITION: Includes wound revision tomorrow at [facility] under general anesthetic. [facility]ENTERFletcher
[~2017-07-10] VITALS: Ht 152.4 cm; Wt 93.4 kg
[~2017-07-10 06:51] MED LIST changes: +ACETAMINOPHEN 1000 MG/100 ML IV IV SCH; +CEFAZOLIN 2000MG IV PUSH 15 ML IV SCH; -FRCT/ PO; -KETO10TA PO; +LACTATED RINGER'S 1000ML 1,000 ML IV SCH; -METH4PAK PO; +NRN600 PO; +NSS 1000ML IV SCH; +~ANCEF~ALLERGY NOTED TO ORDERED MEDICATION SCH
[2017-07-10 07:42] LABS: PTT PATIENT 27.7 SECONDS (21.0-31.0)
[2017-07-10 07:47] VITALS: BP 154/78; PULSE 87; TEMP 36.7; O2SAT 97
[2017-07-10] MEDS ORDERED: LARYING-O-JET KIT (LTA) ONE (08:43)
[2017-07-10] MEDS ORDERED: LIDOCAINE HCL 2% 2 ML VIAL (20MG/ML) ONE (08:43)
[2017-07-10] MEDS ORDERED: FENTANYL CITRATE INJ 50 MCG/1 ML 2 ML VIAL ONE (08:43)
[2017-07-10] MEDS ORDERED: ROCURONIUM BROMIDE 10 MG/ML 5 ML VIAL IV ONE (08:43)
[2017-07-10] MEDS ORDERED: MIDAZOLAM HCL 1 MG/ML 2ML VIAL ONE (08:43)
[2017-07-10] MEDS ORDERED: ONDANSETRON INJ 2 MG/ML 2 ML VIAL ONE (08:43)
[2017-07-10] MEDS ORDERED: GLYCOPYRROLATE INJ 0.2 MG/ML VIAL ONE (08:43)
[2017-07-10] MEDS ORDERED: PROPOFOL IV EMULSION 10 MG/ML 20 ML VIAL IV ONE (08:43)
[2017-07-10] MEDS ORDERED: NEOSTIGMINE METHYLSULFATE 5 MG/5 ML SYR ONE (08:43)
[2017-07-10] MEDS ORDERED: CIPROFLOXACIN 400MG / 200ML D5W ONE (08:45)
[2017-07-10] MEDS ORDERED: THROMBIN FOR SOLN 20000 UNIT KIT ONE (09:01)
[2017-07-10] MEDS ORDERED: GELATIN SPONGE SZ 100 ONE (09:02)
[2017-07-10] MEDS ORDERED: BACITRACIN 50000 UNIT VIAL ONE (09:02)
[2017-07-10] MEDS ORDERED: ATROPINE SULFATE 0.1 MG/ML 5ML SYR IV PRN (09:45)
[2017-07-10] MEDS ORDERED: PHENYLEPHRINE 100MCG/ML 5ML SYR IV PRN (09:45)
[2017-07-10] MEDS ORDERED: FLUMAZENIL 0.1 MG/1 ML 10 ML VIAL IV PRN (09:45)
[2017-07-10] MEDS ORDERED: LABETALOL HCL IV 5 MG/ML 20ML IV PRN (09:45)
[2017-07-10] MEDS ORDERED: FENTANYL CITRATE INJ 50 MCG/1 ML 2 ML VIAL IV PRN (09:45)
[2017-07-10] MEDS ORDERED: EpHEDrine SULFATE INJ 50 MG/ML AMP IV PRN (09:45)
[2017-07-10] MEDS ORDERED: MEPERIDINE HCL 25 MG/ML CARP IV PRN (09:45)
[2017-07-10] MEDS ORDERED: HYDROmorphone INJ 2 MG/ML SYR/VIAL IV PRN (09:45)
[2017-07-10] MEDS ORDERED: ONDANSETRON INJ 2 MG/ML 2 ML VIAL IV PRN ×2 (09:45→10:15)
[2017-07-10] MEDS ORDERED: NALOXONE HCL 0.4 MG/1 ML VIAL/CARP IV PRN (09:45)
--- NOTE | 2017-07-10 10:05 | [facility] Post Operative Brief Note ---
Immediate Operative Summary Operative Date Jul 10, 2017. Pre-Operative Diagnosis Wound Complication Post-Operative Diagnosis Wound Complication Procedure(s) Performed Lumbar Wound Revision Surgeon Dr Mcdonald [employer] [facility] [employer] Operator Surgeon(s) Krishna Callahan PA-C Estimated Blood Loss 10cc Findings Consistent with Post-Op Diagnosis Specimens None per surgeon Drains None Anesthesia Type General Complication(s) none Disposition Accompanied Pt To Recover: yes
[2017-07-10] MEDS ORDERED: SODIUM CHLORIDE 0.9% 1000ML 1,000 ML IV SCH (10:10)
[2017-07-10] MEDS ORDERED: HYDR-5688 PO (10:13)
[2017-07-10] MEDS ORDERED: OXYCODONE/ACETAMINOPHEN 5-325 TAB PO PRN ×2 (10:15)
--- NOTE | 2017-07-10 10:15 | Discharge Instructions ---
Discharge Instructions Date of Service Jul 10, 2017. Admission Reason for Admission: Lumbar Wound Dehiscence Discharge Discharge Diagnosis / Problem: SAME ABOVE Discharge Goals Goal(s): Decrease discomfort, Improve function Activity Recommendations Activity Limitations: as noted below Lifting Limitations: until after follow-up appointment Exercise/Sports Limitations: until after follow-up appointment Shower/Bathe: may shower/bathe in 3 days, keep incision dry . Instructions / Follow-Up Instructions / Follow-Up MEDICATIONS: * Resume previous medications unless instructed otherwise by your surgeon. * Always take pain medication on a full stomach or with food to avoid upset stomach. * Do not drink alcohol or drive while taking narcotics. * Ibuprofen or Tylenol may be taken if narcotic not needed. SPECIAL CARE INSTRUCTIONS: __ None _X_ Keep extremity elevated and iced x 48 hours; apply ice 20-30 minutes 8-10 times/day. May remove at night. __ Sling __24 hrs/day __ Remove at night __ Shoulder Immobilizer __ 24 hrs/day __ Remove at night _X_ Dressing __ Maintain until seen in office, may shower with plastic over site _X_ Remove dressings in 24-48 hours and then may shower __ Cover incisions with band-aids after showering __ Do not remove steri-strips PROVIDE 4X4S AND MEDIPOSRE TAPE REDRESS AFTER SHOWERING Call physician if chills or temperature rises above 102 degrees or pain unrelieved by prescribed pain medications at . . Current Hospital Diet Patient's current hospital diet: Discharge Diet Recommended Diet: Regular Diet Procedures Procedures Performed: Lumbar Wound Revision Pending Studies Studies pending at discharge: no Medical Emergencies . Who to Call and When: Medical Emergencies: If at any time you feel your situation is an emergency, please call 911 immediately. . Non-Emergent Contact Non-Emergency issues call your: Primary Care Provider . "Provider Documentation" section prepared by Krishna Callahan. .
--- NOTE | 2017-07-10 10:39 | OPERATIVE REPORT ---
DATE OF OPERATION: 07/10/2017 PREOPERATIVE DIAGNOSIS: Wound dehiscence, lumbar spine. POSTOPERATIVE DIAGNOSIS: Same. PROCEDURE: Include a wound revision, lumbar spine. SURGEON: Dr. Mcdonald. CUSTOM STOCK MAKER: Krishna Callahan PA-C. COMPLICATIONS: There were no complications. BLOOD LOSS: 10 mL. DESCRIPTION OF PROCEDURE: Radhika was taken to the operating room, a general intubated anesthetic provided to the patient, placed prone, scrubbed, prepped and draped sterile. She has a small area in the central part of the lumbar spine wound that would not quite heal. We made an elliptical based skin incision. We did not have to go to the fascia. This did not communicate. Seem to be more of a keloid or granulation tissue was preventing the healing of the superficial layer. We debrided back to normal healthy tissue, irrigated, closed carefully, closed with interrupted 2-0 Vicryl suture, 3-0 nylon in the skin. Sterile dressings applied. I attest to the content of the Intraoperative Record and any orders documented therein. Any exception s are noted below.
--- NOTE | 2017-07-10 10:46 | Anesthesiology Progress Note ---
Anesthesia Post Op Note Date & Time Jul 10, 2017 at 10:46 Vital Signs Pain Intensity: 3 Vital Signs Past 12 Hours Date Time Temp Pulse Resp B/P (MAP) Pulse Ox O2 Delivery O2 Flow Rate FiO2 07/10/17 10:35 92 15 145/71 96 Room Air 07/10/17 10:25 78 15 150/84 100 Oxymask 8 07/10/17 10:15 73 14 149/87 100 Oxymask 8 07/10/17 10:11 36.4 81 16 149/82 100 Oxymask 8 07/10/17 07:47 36.7 87 20 154/78 (103) 97 Room Air Notes Mental Status: alert / awake / arousable, participated in evaluation Pt Amnestic to Procedure: Yes Nausea / Vomiting: adequately controlled Pain: adequately controlled Airway Patency, RR, SpO2: stable & adequate BP & HR: stable & adequate Hydration State: stable & adequate Anesthetic Complications: no major complications apparent
[2017-07-10 11:00] VITALS: BP 144/66; PULSE 73; TEMP 36.7; O2SAT 93
[2017-07-10 11:32] VITALS: BP 123/60; PULSE 74; O2SAT 96
[2017-07-10 12:00] VITALS: BP 113/58; PULSE 72; TEMP 36.9; O2SAT 96
== END 2017-07-10 12:25 | disposition home or self-care (01) ==
LOC: C.ACU 06:51
PROVIDERS: ATTEND Orthopaedic Surgery Orthopaedic Surgery of the Spine
DX: T81.31XA Disruption of external operation (surgical) wound, not elsewhere classified, initial encounter (principal); Y84.8 Other medical procedures as the cause of abnormal reaction of the patient, or of later complication, without mention of misadventure at the time of the procedure; Z86.711 Personal history of pulmonary embolism; J45.909 Unspecified asthma, uncomplicated; G47.33 Obstructive sleep apnea (adult) (pediatric); E66.01 Morbid (severe) obesity due to excess calories; Z79.899 Other long term (current) drug therapy; Z79.01 Long term (current) use of anticoagulants; Z98.890 Other specified postprocedural states